=== PATIENT | male | born 1945 | race Two or more races ===

== ENCOUNTER 2016-04-09 23:57 | Inpatient (IN) | payer MEDICARE ==
[2016-04-10 01:21] VITALS: BP 100/73
[2016-04-10] MEDS ORDERED: Promethazine DM 6.25/15mg-5mL 5 ML SYR PO PRN (01:32)
[2016-04-10] MEDS: Sodium Chloride 0.9% 1,000 ML IV SCH ×2 (02:25→23:26)
[2016-04-10] MEDS: INSULIN ASPART SLIDING SCALE 100 UNITS/ML UNIT SUBQ SCH ×4 (06:17→23:26)
[2016-04-10 07:05] LABS: % BASOPHILS 0.4 % (0.0-2.0); % EOSINOPHILS 2.2 % (0.0-5.0); % LYMPHOCYTES 30.8 % (20.0-50.0); % MONOCYTES 8.9 % (2.0-10.0); % NEUTROPHILS 57.7 % (40.0-80.0); HEMATOCRIT 43.1 % (39.0-49.0); HEMOGLOBIN 14.6 gm/dL (12.6-17.4); MEAN CELL VOLUME 88.4 fl (80-99); MEAN CORPUSCULAR HEMOGLOBIN 30.1 pg (27.0-31.0); MEAN PLATELET VOLUME 8.2 fl; NEUTROPHILE ABSOLUTE 4.4 Th/cmm (1.8-8.0); PLATELET COUNT 154 Th/cmm (150-400); RED BLOOD COUNT 4.87 Mil/cmm (3.80-5.80); RED CELL DISTRIBUTION WIDTH 12.7 % (11.5-20.0); WHITE BLOOD COUNT 7.7 Th/cmm (4.8-10.8)
[2016-04-10 07:28] LABS: ALB/GLOB RATIO 1.1 (1.0-1.8); ALKALINE PHOSPHATASE 72 U/L (34-104); ANION GAP 10.4 (7.0-16.0); BILIRUBIN,TOTAL 0.7 mg/dL (0.3-1.0); BUN - UREA NITROGEN 8 mg/dL (7-25); CHLORIDE 107 mEq/L (98-107); CREATININE - SERUM 0.8 mg/dL (0.7-1.3); GLUCOSE 102 mg/dL (70-105); POTASSIUM SERUM 3.4 mEq/L (3.5-5.1); SGOT 15 U/L (13-39); SGPT/ALT 15 U/L (7-52); SODIUM SERUM 140 mEq/L (136-145)
--- NOTE | 2016-04-10 08:21 | General Progress Note ---
Subjective - Review of Systems Service Date: 04/10/16 Subjective: Patient confused Objective - Results Result Diagrams: 04/10/16 06:06 04/10/16 06:06 Recent Labs: Laboratory Last Values WBC 7.7 Th/cmm (4.8-10.8) 04/10/16 06:06 RBC 4.87 Mil/cmm (3.80-5.80) 04/10/16 06:06 Hgb 14.6 gm/dL (12.6-17.4) 04/10/16 06:06 Hct 43.1 % (39.0-49.0) 04/10/16 06:06 MCV 88.4 fl (80-99) 04/10/16 06:06 MCH 30.1 pg (27.0-31.0) 04/10/16 06:06 MCHC Differential 34.0 pg (28.0-36.0) 04/10/16 06:06 RDW 12.7 % (11.5-20.0) 04/10/16 06:06 Plt Count 154 Th/cmm (150-400) 04/10/16 06:06 MPV 8.2 fl 04/10/16 06:06 Neutrophils % 57.7 % (40.0-80.0) 04/10/16 06:06 Lymphocytes % 30.8 % (20.0-50.0) 04/10/16 06:06 Monocytes % 8.9 % (2.0-10.0) 04/10/16 06:06 Eosinophils % 2.2 % (0.0-5.0) 04/10/16 06:06 Basophils % 0.4 % (0.0-2.0) 04/10/16 06:06 Sodium 140 mEq/L (136-145) 04/10/16 06:06 Potassium 3.4 mEq/L (3.5-5.1) L 04/10/16 06:06 Chloride 107 mEq/L (98-107) 04/10/16 06:06 Carbon Dioxide 26.0 mEq/L (21.0-31.0) 04/10/16 06:06 Anion Gap 10.4 (7.0-16.0) 04/10/16 06:06 BUN 8 mg/dL (7-25) 04/10/16 06:06 Creatinine 0.8 mg/dL (0.7-1.3) 04/10/16 06:06 Est GFR ( Amer) TNP 04/10/16 06:06 Est GFR (Non-Af Amer) TNP 04/10/16 06:06 BUN/Creatinine Ratio 10.0 04/10/16 06:06 Glucose 102 mg/dL (70-105) 04/10/16 06:06 POC Glucose 100 MG/DL (70 - 105) 04/10/16 06:12 Calcium 9.0 mg/dL (8.6-10.3) 04/10/16 06:06 Total Bilirubin 0.7 mg/dL (0.3-1.0) 04/10/16 06:06 AST 15 U/L (13-39) 04/10/16 06:06 ALT 15 U/L (7-52) 04/10/16 06:06 Alkaline Phosphatase 72 U/L (34-104) 04/10/16 06:06 Total Protein 6.4 gm/dL (6.0-8.3) 04/10/16 06:06 Albumin 3.4 gm/dL (4.2-5.5) L 04/10/16 06:06 Globulin 3.0 gm/dL 04/10/16 06:06 Albumin/Globulin Ratio 1.1 (1.0-1.8) 04/10/16 06:06 - Physical Exam Vitals and I&O: Vital Signs Temp 99.7 F 04/10/16 04:00 Pulse 86 04/10/16 05:00 Resp 19 04/10/16 04:00 BP 92/52 04/10/16 05:00 Pulse Ox 98 04/10/16 04:00 Intake & Output 04/09/16 04/10/16 04/10/16 18:59 06:59 18:59 Output Total 400 Balance -400 Weight (lbs) 76.7 kg Output: Urine 400 Active Medications: Current Medications Acetaminophen (Tylenol) 650 mg PO Q6H PRN PRN Reason: Pain or Fever >101 Stop: 06/09/16 01:29 Sodium Chloride (Nacl 0.9%) 1,000 mls @ 75 mls/hr IV .[id number] [facility] Stop: 06/09/16 01:59 Last Admin: 04/10/16 02:25 Dose: 75 mls/hr Influenza Virus Vaccine (Fluarix) 0.5 ml IM .ONCE ONE Stop: 04/10/16 09:01 Insulin Aspart (Novolog Insulin Sliding Scale) 0 units SUBQ Q6HR [facility] PRN Reason: Protocol Stop: 06/09/16 05:59 Last Admin: 04/10/16 06:17 Dose: Not Given Ondansetron HCl (Zofran) 4 mg IVP Q6H PRN PRN Reason: Nausea / Vomiting Stop: 06/09/16 01:32 Pneumococcal Polyvalent Vaccine (Pneumovax) 0.5 ml IM .ONCE ONE Stop: 04/10/16 09:01 Promethazine HCl/Dextromethorphan (Phenergan Dm 6.25/15mg-5 Ml) 5 ml PO Q6HR PRN PRN Reason: Cough Stop: 06/09/16 01:31 General: Alert, Other (Confused, not oriented) HEENT: Atraumatic Neck: Supple Cardiovascular: Regular rate Lungs: Other (Rude respiration) Abdomen: Bowel sounds, Soft Extremities: Other (No edema) Skin: Other (Unstable gait) Psych/Mental Status: Other (Confused, not oriented) Assessment/Plan - Assessment Assessment: Patient is confused, not oriented. Dx: Stroke. Patient is little agitated - Plan Plan: [facility] consult request. ativan is added.
[2016-04-10] MEDS ORDERED: Pneumococcal Vaccine 0.5 mL Vial IM ONE (09:00)
[2016-04-10] MEDS ORDERED: Influenza Vaccine 0.5 mL Syr IM ONE (09:00)
--- NOTE | 2016-04-10 11:01 | Diagnostic Imaging Report ---
Portable chest x-ray History: Cough Allowing for portable technique the heart size is normal. No focal pulmonary parenchymal processes. No hilar or mediastinal abnormalities. Impression: No acute abnormalities.
[2016-04-10] MEDS ORDERED: VTE Chemical Prophylaxis Screen/Admission MC PRN (11:30)
--- NOTE | 2016-04-10 12:11 | History & Physical ---
CHIEF COMPLAINT: Confusion and motor weakness. HISTORY OF PRESENT ILLNESS: This is a case of a 70-year-old male who was at home with her daughter and she left for 10 minutes when she came back, the patient was confused with some weakness in the right arm and leg. The patient was transported to [facility] where he was evaluated. During evaluation, head CT was done and was found according to the CT, the patient has abnormal right frontal, occipital possible right temporal lobe cortical lesion suspicious for acute infarct in the right lobe. Diagnosis of CVA was done and the patient was transferred to the hospital to continue with treatment. In [facility], he was evaluated by the Neurology and it was considered the patient was not a candidate for thrombolytic therapy. PAST MEDICAL HISTORY: Unremarkable. PAST SURGICAL HISTORY: Not available. FAMILY HISTORY: Unremarkable. ALLERGIES: No known allergies. MEDICATIONS: Reviewed. REVIEW OF SYSTEMS: Information was not obtained secondary to the patient's mental confusion. PHYSICAL EXAMINATION: GENERAL: Does reveal a fairly nourished and developed male, awake, alert, confused, not oriented, answering question, but confused. HEENT: Head is normocephalic and atraumatic. Eyes: Pupils reactive to light. Nose: No evidence of nasal obstruction. Ears: No evidence of any discharge. Mouth: Fairly ____. Tongue movement adequately. Face muscles, there is no deviation. LUNGS: Bilateral air entry ____ respiration. The patient has cough. HEART: Regular rhythm. ABDOMEN: Soft, nontender, bowel sounds present. EXTREMITIES: The patient has decreased muscle force in the right arm. Right leg normal. ____ of the extremities normal. NEUROLOGICAL: The patient is awake, alert, confused, not oriented. Neurological examination was not completed secondary to the patient's confusion. At this moment, there is only decreased muscle strength in the right arm. IMPRESSION: Stroke. PLAN: 1. The patient will be admitted in the telemetry unit. 2. Normal saline IV. 3. Consult with Dr. Bullock, Neurology. 4. Tylenol p.r.n. 5. Soft diet. 6. Neurological check q. 6 hours 7. Accu-Chek q. 6 hours. 8. CBC and CMP at a.m. and chest x-ray. JOB# [id number]
[2016-04-10] MEDS ORDERED: Sodium Chloride 0.9% 500 ML IV ONE (15:51)
--- NOTE | 2016-04-10 21:39 | History & Physical ---
HISTORY OF PRESENT ILLNESS: The patient ____ difficulty with confusion. Weakness, right side. Went to hospital. The patient's CT scan shows acute stroke in the right frontal occipital, right temporal. The patient treated on non-tPA protocol. The patient transferred here. PAST MEDICAL HISTORY: The patient is generally healthy. No other major medical problems. PAST SURGICAL HISTORY: None recently. ALLERGIES: None. MEDICATIONS: As per reconciliation. Here, the patient is on Xanax. REVIEW OF SYSTEMS: No marked headache and no seizures. Confusion. The patient will answer questions. Weakness, right side. No chest pain. No shortness of breath. No cough, sputum, or hemoptysis. PHYSICAL EXAMINATION: VITAL SIGNS: Temperature 98.4, blood pressure 128/86, and pulse is 90. NECK: Supple. No neck bruits. HEART: Sounds S1 and S2. LUNGS: Clear. ABDOMEN: Soft. NEUROLOGIC: The patient awake. He gives me his name. He is able to name simple objects, though has limited speech. At times inappropriate. CRANIAL: He was able to identify objects in both [place]. Pupils are reactive to light. Some right facial droop MOTOR: He has definite drift on the right arm. Right leg is actually not bad. He is able to lift ____. Reflexes 1+. INVESTIGATIONS: CT scan done at [place] showed abnormal right frontal occipital and possible right temporal lobe infarctions. Here, the patient had a CAT scan done today, which shows hypodense area not only on the right side, but also on the left side, they are still more on the right. LABORATORY DATA: The patient's WBC is 7.7, hemoglobin is 14.6, and platelets are normal. EKG shows sinus rhythm. IMPRESSION: 1. Stroke, right, both anterior and posterior circulation. Also, hypodense area on the left side, raises possibility of embolic. 2. Clinically surprisingly, he has some drift on the right side compared to the left. 3. Ataxia. MANAGEMENT: MRI of brain. MRA of head and neck. I will recommend cardiology evaluation to make sure no cardiogenic etiology for the stroke. Antiplatelet medications. Lipid profile. JOB# [id number]
[2016-04-10] MEDS: Aspirin 81mg Chewable Tab PO SCH (22:13)
[2016-04-11 06:41] LABS: % BASOPHILS 0.5 % (0.0-2.0); % LYMPHOCYTES 35.5 % (20.0-50.0); % MONOCYTES 6.5 % (2.0-10.0); % NEUTROPHILS 54.5 % (40.0-80.0); HEMATOCRIT 43.2 % (39.0-49.0); HEMOGLOBIN 14.5 gm/dL (12.6-17.4); MEAN CELL VOLUME 88.8 fl (80-99); MEAN CORPUSCULAR HEMOGLOBIN 29.9 pg (27.0-31.0); MEAN CORPUSCULAR HGB CONC 33.7 pg (28.0-36.0); MEAN PLATELET VOLUME 8.5 fl; NEUTROPHILE ABSOLUTE 4.7 Th/cmm (1.8-8.0); PLATELET COUNT 156 Th/cmm (150-400); RED BLOOD COUNT 4.86 Mil/cmm (3.80-5.80); RED CELL DISTRIBUTION WIDTH 12.4 % (11.5-20.0); WHITE BLOOD COUNT 8.3 Th/cmm (4.8-10.8)
[2016-04-11 07:06] LABS: ALB/GLOB RATIO 1.1 (1.0-1.8); ALKALINE PHOSPHATASE 64 U/L (34-104); ANION GAP 10.5 (7.0-16.0); BILIRUBIN,TOTAL 0.8 mg/dL (0.3-1.0); BUN - UREA NITROGEN 8 mg/dL (7-25); BUN/CREATININE RATIO 11.4; CALCIUM SERUM 8.9 mg/dL (8.6-10.3); CARBON DIOXIDE 26.7 mEq/L (21.0-31.0); CHLORIDE 105 mEq/L (98-107); CHOLESTEROL 146 mg/dL (<200); CREATININE - SERUM 0.7 mg/dL (0.7-1.3); GLUCOSE 90 mg/dL (70-105); POTASSIUM SERUM 3.2 mEq/L (3.5-5.1); SGOT 17 U/L (13-39); SGPT/ALT 15 U/L (7-52); SODIUM SERUM 139 mEq/L (136-145); TRIGLYCERIDES 111 mg/dL (<150)
[2016-04-11] MEDS: INSULIN ASPART SLIDING SCALE 100 UNITS/ML UNIT SUBQ SCH ×3 (07:43→17:36)
[2016-04-11 07:45] LABS: URINE BILIRUBIN NEGATIVE (NEGATIVE); URINE GLUCOSE (UA) NEGATIVE (NEGATIVE); URINE KETONE NEGATIVE (NEGATIVE)
[2016-04-11 07:46] LABS: URINE BLOOD MODERATE (NEGATIVE); URINE PROTEIN NEGATIVE (NEGATIVE); URINE UROBILINOGEN 0.2 E.U./dL (0.2 - 1.0)
[2016-04-11 08:18] LABS: URINE COLOR PINKISH
[2016-04-11 08:19] LABS: URINE BACTERIA OCCASIONAL /hpf (NONE SEEN); URINE EPITHELIAL CELLS OCCASIONAL /lpf (FEW); URINE RBC 50-100 /hpf (0-5); URINE WBC 0-2 /hpf (0-5)
[2016-04-11] MEDS ORDERED: Potassium Phosphate 20 MMOLE in Sodium Chloride 0.9% 250 ML IV ONE (08:28)
[2016-04-11] MEDS: Aspirin 81mg Chewable Tab PO SCH (08:51)
--- NOTE | 2016-04-11 08:58 | General Progress Note ---
Subjective - Review of Systems Service Date: 03/14/16 Subjective: Patient confused, responding question Objective - Results Result Diagrams: 04/11/16 05:18 04/11/16 05:18 Recent Labs: Laboratory Last Values WBC 8.3 Th/cmm (4.8-10.8) 04/11/16 05:18 RBC 4.86 Mil/cmm (3.80-5.80) 04/11/16 05:18 Hgb 14.5 gm/dL (12.6-17.4) 04/11/16 05:18 Hct 43.2 % (39.0-49.0) 04/11/16 05:18 MCV 88.8 fl (80-99) 04/11/16 05:18 MCH 29.9 pg (27.0-31.0) 04/11/16 05:18 MCHC Differential 33.7 pg (28.0-36.0) 04/11/16 05:18 RDW 12.4 % (11.5-20.0) 04/11/16 05:18 Plt Count 156 Th/cmm (150-400) 04/11/16 05:18 MPV 8.5 fl 04/11/16 05:18 Neutrophils % 54.5 % (40.0-80.0) 04/11/16 05:18 Lymphocytes % 35.5 % (20.0-50.0) 04/11/16 05:18 Monocytes % 6.5 % (2.0-10.0) 04/11/16 05:18 Eosinophils % 3.0 % (0.0-5.0) 04/11/16 05:18 Basophils % 0.5 % (0.0-2.0) 04/11/16 05:18 Sodium 139 mEq/L (136-145) 04/11/16 05:18 Potassium 3.2 mEq/L (3.5-5.1) L 04/11/16 05:18 Chloride 105 mEq/L (98-107) 04/11/16 05:18 Carbon Dioxide 26.7 mEq/L (21.0-31.0) 04/11/16 05:18 Anion Gap 10.5 (7.0-16.0) 04/11/16 05:18 BUN 8 mg/dL (7-25) 04/11/16 05:18 Creatinine 0.7 mg/dL (0.7-1.3) 04/11/16 05:18 Est GFR ( Amer) TNP 04/11/16 05:18 Est GFR (Non-Af Amer) TNP 04/11/16 05:18 BUN/Creatinine Ratio 11.4 04/11/16 05:18 Glucose 90 mg/dL (70-105) 04/11/16 05:18 POC Glucose 82 MG/DL (70 - 105) 04/11/16 06:03 Calcium 8.9 mg/dL (8.6-10.3) 04/11/16 05:18 Total Bilirubin 0.8 mg/dL (0.3-1.0) 04/11/16 05:18 AST 17 U/L (13-39) 04/11/16 05:18 ALT 15 U/L (7-52) 04/11/16 05:18 Alkaline Phosphatase 64 U/L (34-104) 04/11/16 05:18 Total Protein 6.3 gm/dL (6.0-8.3) 04/11/16 05:18 Albumin 3.3 gm/dL (4.2-5.5) L 04/11/16 05:18 Globulin 3.0 gm/dL 04/11/16 05:18 Albumin/Globulin Ratio 1.1 (1.0-1.8) 04/11/16 05:18 Triglycerides 111 mg/dL (<150) 04/11/16 05:18 Cholesterol 146 mg/dL (<200) 04/11/16 05:18 LDL Cholesterol Direct 93 mg/dL (75-193) 04/11/16 05:18 HDL Cholesterol 36 mg/dL (23-92) 04/11/16 05:18 TSH 4.98 uIU/ml (0.34-5.60) 04/11/16 05:18 Urine Source [place] 04/11/16 06:05 Urine Color PINKISH 04/11/16 06:05 Urine Clarity CLEAR (CLEAR) 04/11/16 06:05 Urine pH 7.0 04/11/16 06:05 Ur Specific [place] 1.015 (1.005-1.030) 04/11/16 06:05 Urine Protein NEGATIVE mg/dL (NEGATIVE) 04/11/16 06:05 Urine Glucose (UA) NEGATIVE mg/dL (NEGATIVE) 04/11/16 06:05 Urine Ketones NEGATIVE mg/dL (NEGATIVE) 04/11/16 06:05 Urine Blood MODERATE (NEGATIVE) H 04/11/16 06:05 Urine Nitrate NEGATIVE (NEGATIVE) 04/11/16 06:05 Urine Bilirubin NEGATIVE (NEGATIVE) 04/11/16 06:05 Urine Urobilinogen 0.2 E.U./dL (0.2 - 1.0) 04/11/16 06:05 Ur Leukocyte Esterase NEGATIVE (NEGATIVE) 04/11/16 06:05 Urine RBC 50-100 /hpf (0-5) H 04/11/16 06:05 Urine WBC 0-2 /hpf (0-5) 04/11/16 06:05 Ur Epithelial Cells OCCASIONAL /lpf (FEW) 04/11/16 06:05 Urine Bacteria OCCASIONAL /hpf (NONE SEEN) 04/11/16 06:05 - Physical Exam Vitals and I&O: Vital Signs Temp 98.7 F 04/11/16 04:00 Pulse 69 04/11/16 04:00 Resp 20 04/11/16 04:00 BP 110/54 04/11/16 04:30 Pulse Ox 100 04/11/16 04:00 Intake & Output 04/10/16 04/11/16 04/11/16 18:59 06:59 18:59 Intake Total 1900 650 Output Total 800 2000 Balance 1100 -1350 Intake: Intake, IV Amount 1500 Sodium Chloride 0.9% 1, 1000 000 ml @ 75 mls/hr IV . [id number] [facility] Rx#:[id number] Oral 400 650 Output: Urine 800 2000 Other: # Bowel Movements 0 Active Medications: Current Medications Acetaminophen (Tylenol) 650 mg PO Q6H PRN PRN Reason: Pain or Fever >101 Stop: 06/09/16 01:29 Alprazolam (Xanax) 0.5 mg PO Q12HR PRN; Protocol PRN Reason: Agitation Stop: 06/09/16 08:59 Last Admin: 04/10/16 22:12 Dose: 0.5 mg Aspirin (Aspirin Chewable) 81 mg PO DAILY [facility] Stop: 06/09/16 21:59 Last Admin: 04/11/16 08:51 Dose: 81 mg Heparin Sodium (Porcine) (Heparin) 5,000 units SUBQ Q12HR [facility]ICK Stop: 06/09/16 20:59 Last Admin: 04/11/16 08:51 Dose: 5,000 units Sodium Chloride (Nacl 0.9%) 1,000 mls @ 75 mls/hr IV .[id number] [facility] Stop: 06/09/16 01:59 Last Admin: 04/10/16 23:26 Dose: 75 mls/hr Potassium Phosphate 20 mmole/ (Sodium Chloride) 256.6667 mls @ 42.5 mls/hr IV X1 ONE Stop: 04/11/16 14:30 Insulin Aspart (Novolog Insulin Sliding Scale) 0 units SUBQ Q6HR MICK PRN Reason: Protocol Stop: 06/09/16 05:59 Last Admin: 04/11/16 07:43 Dose: Not Given Lorazepam (Ativan) 1 mg IVP ONCE MICK PRN Reason: Protocol Stop: 06/10/16 08:29 Miscellaneous (Vte Chemical Prophylaxis Screen/ Admission) 1 ea [facility] PRN PRN PRN Reason: PROTOCOL Stop: 06/09/16 11:29 Ondansetron HCl (Zofran) 4 mg IVP Q6H PRN PRN Reason: Nausea / Vomiting Stop: 06/09/16 01:32 Promethazine HCl/Dextromethorphan (Phenergan Dm 6.25/15mg-5 Ml) 5 ml PO Q6HR PRN PRN Reason: Cough Stop: 06/09/16 01:31 Last Admin: 04/10/16 22:20 Dose: 5 ml General: Alert, No acute distress, Other (Confused) HEENT: Atraumatic Neck: Supple Cardiovascular: Regular rate Lungs: Clear to auscultation Abdomen: Bowel sounds Extremities: Other (No edema, diminished muscle strenght in right arm (20 %)) Neurological: Other (Unstable gait) Skin: Other (Warm and dry) Psych/Mental Status: Other (Confused) Assessment/Plan - Assessment Assessment: Patient is confused, not oriented. Dx: Stroke. Patient is more calm today. - Plan Plan: patient already seen by [facility]. MRI will be done today. Will continue to monitor
[2016-04-11] MEDS ORDERED: KCL 20mEq/100mL Premix 20 MEQ/100 ML PIGGYBACK IV ONE (09:15)
--- NOTE | 2016-04-11 11:35 | Diagnostic Imaging Report ---
CT scan of the brain without intravenous contrast HISTORY: Stroke, CVA Total DLP equals 681 CTDI equals 35.4 Axial sections were obtained from the base of the skull to the vertex. There is a normal ventricular system size for age. There is enlargement of cerebral sulci and subarachnoid cisterns reflecting atrophy. Hypodensity is noted in the right lesser degree left occipital regions. No significant mass effect. Findings may be associated with a chronic etiology (old infarcts). However, an acute ischemic infarct cannot be definitely excluded. If indicated, an MRI exam would provide additional characterization. Focal hypodensity is noted in the high right frontal parietal region probably related to an old infarct. No acute intracerebral hemorrhage. Again, no mass effect or shift of midline structures. No extra-axial masses or abnormal fluid collections. Atherosclerotic calcification seen in the region of the vertebral arteries at the base of the skull. IMPRESSION: 1. Hypodensity within the right and to a lesser degree left occipital regions without mass effect. The findings may be associated with old infarcts. However, changes related to an acute ischemic infarct cannot be definitely excluded. Clinical correlation is needed. If necessary, an MRI exam may be helpful. 2. Focal hypodensity in the high right frontal parietal region most likely related to an old infarct. 3. Cerebral atrophy 4. Atherosclerotic vascular changes
[2016-04-11] MEDS: Sodium Chloride 0.9% 1,000 ML IV SCH (14:42)
--- NOTE | 2016-04-11 21:21 | Admit Criteria Form ---
Admit Criteria Forms - Admit Criteria Diagnosis: STROKE: ISCHEMIC Clinical Indications for Admission to Inpatient Care (Place 'X' for any and all applicable criteria): Admission is indicated for ANY ONE of the following(1)(2)(3)(4): [X]I. Acute stroke Extended stay beyond goal length of stay may be needed for(1)(2) [ ]a) Major deficit or clinical deterioration [ ]b) Hospital-acquired infection (eg, urinary tract infection, pneumonia) [ ]c) Embolic cause of stroke [ ]d) Venous thromboembolism(9) [ ]e) Seizures [ ]f) Bleeding (eg, cerebral) [ ]g) Increased intracranial pressure [ ]h) Comorbidities [ ]i) Surgical intervention The original [employer] [facility] content created by [facility] [employer] has been revised. The portions of the content which have been revised are identified through the use of italic text or in bold, and [facility] has neither reviewed nor approved the modified material. All other unmodified content is copyright [facility] [employer]. Please see references footnoted in the original [facility] edition 2016 Admit Criteria Met?: Yes
[2016-04-11] MEDS: Levofloxacin 500mg/100mL 500 MG/100 ML BAG IV SCH (23:52)
[2016-04-12] MEDS: INSULIN ASPART SLIDING SCALE 100 UNITS/ML UNIT SUBQ SCH ×4 (00:03→18:00)
[2016-04-12] MEDS: Sodium Chloride 0.9% 1,000 ML IV SCH ×2 (05:07→17:37)
[2016-04-12 05:37] LABS: % BASOPHILS 0.3 % (0.0-2.0); % EOSINOPHILS 4.7 % (0.0-5.0); % LYMPHOCYTES 36.9 % (20.0-50.0); % MONOCYTES 7.5 % (2.0-10.0); % NEUTROPHILS 50.6 % (40.0-80.0); HEMOGLOBIN 15.3 gm/dL (12.6-17.4); MEAN CELL VOLUME 88.9 fl (80-99); MEAN CORPUSCULAR HEMOGLOBIN 30.2 pg (27.0-31.0); MEAN CORPUSCULAR HGB CONC 33.9 pg (28.0-36.0); MEAN PLATELET VOLUME 7.9 fl; NEUTROPHILE ABSOLUTE 3.4 Th/cmm (1.8-8.0); PLATELET COUNT 160 Th/cmm (150-400); RED BLOOD COUNT 5.06 Mil/cmm (3.80-5.80); RED CELL DISTRIBUTION WIDTH 12.2 % (11.5-20.0)
[2016-04-12 05:48] LABS: WHITE BLOOD COUNT 6.6 Th/cmm (4.8-10.8)
[2016-04-12 07:30] LABS: ALKALINE PHOSPHATASE 66 U/L (34-104); ANION GAP 13.3 (7.0-16.0); BILIRUBIN,TOTAL 0.7 mg/dL (0.3-1.0); BUN - UREA NITROGEN 9 mg/dL (7-25); BUN/CREATININE RATIO 11.3; CALCIUM SERUM 9.2 mg/dL (8.6-10.3); CARBON DIOXIDE 26.3 mEq/L (21.0-31.0); CHLORIDE 104 mEq/L (98-107); CREATININE - SERUM 0.8 mg/dL (0.7-1.3); GLUCOSE 89 mg/dL (70-105); POTASSIUM SERUM 3.6 mEq/L (3.5-5.1); SGOT 24 U/L (13-39); SGPT/ALT 20 U/L (7-52); SODIUM SERUM 140 mEq/L (136-145)
--- NOTE | 2016-04-12 09:12 | General Progress Note ---
Subjective - Review of Systems Service Date: 04/12/16 Subjective: Patient confused, responding question Objective - Results Result Diagrams: 04/12/16 05:08 04/12/16 05:08 Recent Labs: Laboratory Last Values WBC 6.6 Th/cmm (4.8-10.8) D 04/12/16 05:08 RBC 5.06 Mil/cmm (3.80-5.80) 04/12/16 05:08 Hgb 15.3 gm/dL (12.6-17.4) 04/12/16 05:08 Hct 45.0 % (39.0-49.0) 04/12/16 05:08 MCV 88.9 fl (80-99) 04/12/16 05:08 MCH 30.2 pg (27.0-31.0) 04/12/16 05:08 MCHC Differential 33.9 pg (28.0-36.0) 04/12/16 05:08 RDW 12.2 % (11.5-20.0) 04/12/16 05:08 Plt Count 160 Th/cmm (150-400) 04/12/16 05:08 MPV 7.9 fl 04/12/16 05:08 Neutrophils % 50.6 % (40.0-80.0) 04/12/16 05:08 Lymphocytes % 36.9 % (20.0-50.0) 04/12/16 05:08 Monocytes % 7.5 % (2.0-10.0) 04/12/16 05:08 Eosinophils % 4.7 % (0.0-5.0) 04/12/16 05:08 Basophils % 0.3 % (0.0-2.0) 04/12/16 05:08 Sodium 140 mEq/L (136-145) 04/12/16 05:08 Potassium 3.6 mEq/L (3.5-5.1) 04/12/16 05:08 Chloride 104 mEq/L (98-107) 04/12/16 05:08 Carbon Dioxide 26.3 mEq/L (21.0-31.0) 04/12/16 05:08 Anion Gap 13.3 (7.0-16.0) 04/12/16 05:08 BUN 9 mg/dL (7-25) 04/12/16 05:08 Creatinine 0.8 mg/dL (0.7-1.3) 04/12/16 05:08 Est GFR ( Amer) TNP 04/12/16 05:08 Est GFR (Non-Af Amer) TNP 04/12/16 05:08 BUN/Creatinine Ratio 11.3 04/12/16 05:08 Glucose 89 mg/dL (70-105) 04/12/16 05:08 POC Glucose 95 MG/DL (70 - 105) 04/12/16 05:12 Calcium 9.2 mg/dL (8.6-10.3) 04/12/16 05:08 Total Bilirubin 0.7 mg/dL (0.3-1.0) 04/12/16 05:08 AST 24 U/L (13-39) 04/12/16 05:08 ALT 20 U/L (7-52) 04/12/16 05:08 Alkaline Phosphatase 66 U/L (34-104) 04/12/16 05:08 Total Protein 6.7 gm/dL (6.0-8.3) 04/12/16 05:08 Albumin 3.4 gm/dL (4.2-5.5) L 04/12/16 05:08 Globulin 3.3 gm/dL 04/12/16 05:08 Albumin/Globulin Ratio 1.0 (1.0-1.8) 04/12/16 05:08 Triglycerides 111 mg/dL (<150) 04/11/16 05:18 Cholesterol 146 mg/dL (<200) 04/11/16 05:18 LDL Cholesterol Direct 93 mg/dL (75-193) 04/11/16 05:18 HDL Cholesterol 36 mg/dL (23-92) 04/11/16 05:18 TSH 4.98 uIU/ml (0.34-5.60) 04/11/16 05:18 Urine Source [place] 04/11/16 06:05 Urine Color [place]INK[place] 04/11/16 06:05 Urine Clarity CLEAR (CLEAR) 04/11/16 06:05 Urine pH 7.0 04/11/16 06:05 Ur Specific [place] 1.015 (1.005-1.030) 04/11/16 06:05 Urine Protein NEGATIVE mg/dL (NEGATIVE) 04/11/16 06:05 Urine Glucose (UA) NEGATIVE mg/dL (NEGATIVE) 04/11/16 06:05 Urine Ketones NEGATIVE mg/dL (NEGATIVE) 04/11/16 06:05 Urine Blood MODERATE (NEGATIVE) H 04/11/16 06:05 Urine Nitrate NEGATIVE (NEGATIVE) 04/11/16 06:05 Urine Bilirubin NEGATIVE (NEGATIVE) 04/11/16 06:05 Urine Urobilinogen 0.2 E.U./dL (0.2 - 1.0) 04/11/16 06:05 Ur Leukocyte Esterase NEGATIVE (NEGATIVE) 04/11/16 06:05 Urine RBC 50-100 /hpf (0-5) H 04/11/16 06:05 Urine WBC 0-2 /hpf (0-5) 04/11/16 06:05 Ur Epithelial Cells OCCASIONAL /lpf (FEW) 04/11/16 06:05 Urine Bacteria OCCASIONAL /hpf (NONE SEEN) 04/11/16 06:05 - Physical Exam Vitals and I&O: Vital Signs Temp 99 F 04/12/16 04:00 Pulse 80 04/12/16 04:00 Resp 18 04/12/16 04:00 BP 86/46 04/12/16 04:00 Pulse Ox 99 04/12/16 04:00 Intake & Output 04/11/16 04/12/16 04/12/16 18:59 06:59 18:59 Intake Total 1400 1240 Output Total 600 750 Balance 800 490 Intake: Intake, IV Amount 1000 1000 Sodium Chloride 0.9% 1, 1000 1000 000 ml @ 75 mls/hr IV . [id number] [facility] Rx#:[id number] Oral 400 240 Output: Urine 600 750 Other: # Bowel Movements 0 Active Medications: Current Medications Acetaminophen (Tylenol) 650 mg PO Q6H PRN PRN Reason: Pain or Fever >101 Stop: 06/09/16 01:29 Last Admin: 04/11/16 23:25 Dose: 650 mg Alprazolam (Xanax) 0.5 mg PO Q12HR PRN; Protocol PRN Reason: Agitation Stop: 06/09/16 08:59 Last Admin: 04/10/16 22:12 Dose: 0.5 mg Aspirin (Aspirin Chewable) 81 mg PO DAILY [facility] Stop: 06/09/16 21:59 Last Admin: 04/11/16 08:51 Dose: 81 mg Heparin Sodium (Porcine) (Heparin) 5,000 units SUBQ Q12HR [facility] Stop: 06/09/16 20:59 Last Admin: 04/11/16 20:41 Dose: 5,000 units Levofloxacin (Levaquin Pb) 500 mg in 100 mls @ 100 mls/hr IV Q24HR [facility] Stop: 06/11/16 00:00 Last Admin: 04/11/16 23:52 Dose: 100 mls/hr Sodium Chloride (Nacl 0.9%) 1,000 mls @ 100 mls/hr IV .Q10H [facility] Stop: 06/09/16 01:59 Insulin Aspart (Novolog Insulin Sliding Scale) 0 units SUBQ Q6HR [facility] PRN Reason: Protocol Stop: 06/09/16 05:59 Last Admin: 04/12/16 05:55 Dose: Not Given Miscellaneous (Vte Chemical Prophylaxis Screen/ Admission) 1 ea [facility] PRN PRN PRN Reason: PROTOCOL Stop: 06/09/16 11:29 Ondansetron HCl (Zofran) 4 mg IVP Q6H PRN PRN Reason: Nausea / Vomiting Stop: 06/09/16 01:32 Promethazine HCl/Dextromethorphan (Phenergan Dm 6.25/15mg-5 Ml) 5 ml PO Q6HR PRN PRN Reason: Cough Stop: 06/09/16 01:31 Last Admin: 04/10/16 22:20 Dose: 5 ml General: Alert, No acute distress (C), Other (Confused, not oriented) HEENT: Atraumatic Neck: Supple Cardiovascular: Regular rate Lungs: Clear to auscultation Abdomen: Bowel sounds, Soft Extremities: Other (No edema) Neurological: Other (Unstable gait) Skin: Other (Warm and dry) Psych/Mental Status: Other (Confused) Assessment/Plan - Assessment Assessment: Patient is confused, not oriented, responding question, in no acute distress. Yesterday a tried to do an MRI was done but could not done because patient was not calm and Ativan could not given due to Low BP. Dx: Stroke. Patient is more calm today. - Plan Plan: patient already seen by [facility]. Na in urine and blood is requested, cortisol and TSH are requested. Due to UTI levaquin is added. Will continue to monitor
[2016-04-12] MEDS: Aspirin 81mg Chewable Tab PO SCH (09:22)
[2016-04-12] MEDS: Levofloxacin 500mg/100mL 500 MG/100 ML BAG IV SCH (23:11)
[2016-04-13] MEDS: INSULIN ASPART SLIDING SCALE 100 UNITS/ML UNIT SUBQ SCH ×4 (00:05→17:52)
[2016-04-13] MEDS: Sodium Chloride 0.9% 1,000 ML IV SCH ×3 (04:00→18:19)
[2016-04-13 06:18] LABS: ALB/GLOB RATIO 1.1 (1.0-1.8); ALKALINE PHOSPHATASE 60 U/L (34-104); ANION GAP 8.7 (7.0-16.0); BILIRUBIN,TOTAL 0.6 mg/dL (0.3-1.0); BUN - UREA NITROGEN 9 mg/dL (7-25); BUN/CREATININE RATIO 12.9; CALCIUM SERUM 9.1 mg/dL (8.6-10.3); CARBON DIOXIDE 27.9 mEq/L (21.0-31.0); CHLORIDE 106 mEq/L (98-107); CREATININE - SERUM 0.7 mg/dL (0.7-1.3); GLUCOSE 89 mg/dL (70-105); POTASSIUM SERUM 3.6 mEq/L (3.5-5.1); SGOT 22 U/L (13-39); SGPT/ALT 20 U/L (7-52); SODIUM SERUM 139 mEq/L (136-145)
[2016-04-13 06:47] LABS: HEMOGLOBIN 14.8 gm/dL (12.6-17.4); MEAN CORPUSCULAR HEMOGLOBIN 30.3 pg (27.0-31.0); MEAN CORPUSCULAR HGB CONC 33.6 pg (28.0-36.0); MEAN PLATELET VOLUME 8.6 fl; PLATELET COUNT 184 Th/cmm (150-400); RED BLOOD COUNT 4.89 Mil/cmm (3.80-5.80); RED CELL DISTRIBUTION WIDTH 12.3 % (11.5-20.0); WHITE BLOOD COUNT 6.1 Th/cmm (4.8-10.8)
[2016-04-13 06:48] LABS: % BASOPHILS 0.9 % (0.0-2.0); % MONOCYTES 8.4 % (2.0-10.0); % NEUTROPHILS 42.7 % (40.0-80.0); NEUTROPHILE ABSOLUTE 2.6 Th/cmm (1.8-8.0)
[2016-04-13] MEDS: Aspirin 81mg Chewable Tab PO SCH (08:19)
--- NOTE | 2016-04-13 08:35 | General Progress Note ---
Subjective - Review of Systems Service Date: 04/13/16 Subjective: Patient confused, responding question Objective - Results Result Diagrams: 04/13/16 05:26 04/13/16 05:26 Recent Labs: Laboratory Last Values WBC 6.1 Th/cmm (4.8-10.8) 04/13/16 05:26 RBC 4.89 Mil/cmm (3.80-5.80) 04/13/16 05:26 Hgb 14.8 gm/dL (12.6-17.4) 04/13/16 05:26 Hct 44.0 % (39.0-49.0) 04/13/16 05:26 MCV 90.0 fl (80-99) 04/13/16 05:26 MCH 30.3 pg (27.0-31.0) 04/13/16 05:26 MCHC Differential 33.6 pg (28.0-36.0) 04/13/16 05:26 RDW 12.3 % (11.5-20.0) 04/13/16 05:26 Plt Count 184 Th/cmm (150-400) 04/13/16 05:26 MPV 8.6 fl 04/13/16 05:26 Neutrophils % 42.7 % (40.0-80.0) 04/13/16 05:26 Lymphocytes % 41.0 % (20.0-50.0) 04/13/16 05:26 Monocytes % 8.4 % (2.0-10.0) 04/13/16 05:26 Eosinophils % 7.0 % (0.0-5.0) H 04/13/16 05:26 Basophils % 0.9 % (0.0-2.0) 04/13/16 05:26 Sodium 139 mEq/L (136-145) 04/13/16 05:26 Potassium 3.6 mEq/L (3.5-5.1) 04/13/16 05:26 Chloride 106 mEq/L (98-107) 04/13/16 05:26 Carbon Dioxide 27.9 mEq/L (21.0-31.0) 04/13/16 05:26 Anion Gap 8.7 (7.0-16.0) 04/13/16 05:26 BUN 9 mg/dL (7-25) 04/13/16 05:26 Creatinine 0.7 mg/dL (0.7-1.3) 04/13/16 05:26 Est GFR ( Amer) TNP 04/13/16 05:26 Est GFR (Non-Af Amer) TNP 04/13/16 05:26 BUN/Creatinine Ratio 12.9 04/13/16 05:26 Glucose 89 mg/dL (70-105) 04/13/16 05:26 POC Glucose 92 MG/DL (70 - 105) 04/13/16 05:28 Calcium 9.1 mg/dL (8.6-10.3) 04/13/16 05:26 Total Bilirubin 0.6 mg/dL (0.3-1.0) 04/13/16 05:26 AST 22 U/L (13-39) 04/13/16 05:26 ALT 20 U/L (7-52) 04/13/16 05:26 Alkaline Phosphatase 60 U/L (34-104) 04/13/16 05:26 Total Protein 6.6 gm/dL (6.0-8.3) 04/13/16 05:26 Albumin 3.4 gm/dL (4.2-5.5) L 04/13/16 05:26 Globulin 3.2 gm/dL 04/13/16 05:26 Albumin/Globulin Ratio 1.1 (1.0-1.8) 04/13/16 05:26 Triglycerides 111 mg/dL (<150) 04/11/16 05:18 Cholesterol 146 mg/dL (<200) 04/11/16 05:18 LDL Cholesterol Direct 93 mg/dL (75-193) 04/11/16 05:18 HDL Cholesterol 36 mg/dL (23-92) 04/11/16 05:18 TSH 5.54 uIU/ml (0.34-5.60) 04/13/16 05:26 Urine Source [place] 04/11/16 06:05 Urine Color PINKISH 04/11/16 06:05 Urine Clarity CLEAR (CLEAR) 04/11/16 06:05 Urine pH 7.0 04/11/16 06:05 Ur Specific [place] 1.015 (1.005-1.030) 04/11/16 06:05 Urine Protein NEGATIVE mg/dL (NEGATIVE) 04/11/16 06:05 Urine Glucose (UA) NEGATIVE mg/dL (NEGATIVE) 04/11/16 06:05 Urine Ketones NEGATIVE mg/dL (NEGATIVE) 04/11/16 06:05 Urine Blood MODERATE (NEGATIVE) H 04/11/16 06:05 Urine Nitrate NEGATIVE (NEGATIVE) 04/11/16 06:05 Urine Bilirubin NEGATIVE (NEGATIVE) 04/11/16 06:05 Urine Urobilinogen 0.2 E.U./dL (0.2 - 1.0) 04/11/16 06:05 Ur Leukocyte Esterase NEGATIVE (NEGATIVE) 04/11/16 06:05 Urine RBC 50-100 /hpf (0-5) H 04/11/16 06:05 Urine WBC 0-2 /hpf (0-5) 04/11/16 06:05 Ur Epithelial Cells OCCASIONAL /lpf (FEW) 04/11/16 06:05 Urine Bacteria OCCASIONAL /hpf (NONE SEEN) 04/11/16 06:05 Ur Random Sodium 89 mmol/L 04/12/16 15:30 - Physical Exam Vitals and I&O: Vital Signs Temp 97.6 F 04/13/16 04:00 Pulse 73 04/13/16 04:00 Resp 20 04/13/16 04:00 BP 90/60 04/13/16 04:00 Pulse Ox 96 04/13/16 04:00 Intake & Output 04/12/16 04/13/16 04/13/16 18:59 06:59 18:59 Intake Total 1600 1400 Output Total 900 1400 Balance 700 0 Intake: Intake, IV Amount 1100 Levofloxacin 500mg/100mL 100 500 mg In 100 ml @ 100 mls/hr IV Q24HR [facility] Rx#: [id number] Sodium Chloride 0.9% 1, 1000 000 ml @ 100 mls/hr IV . Q10H [facility] Rx#:[id number] Oral 1600 300 Output: Urine 900 1400 Active Medications: Current Medications Acetaminophen (Tylenol) 650 mg PO Q6H PRN PRN Reason: Pain or Fever >101 Stop: 06/09/16 01:29 Last Admin: 04/13/16 01:56 Dose: 650 mg Alprazolam (Xanax) 0.5 mg PO Q12HR PRN; Protocol PRN Reason: Agitation Stop: 06/09/16 08:59 Last Admin: 04/10/16 22:12 Dose: 0.5 mg Aspirin (Aspirin Chewable) 81 mg PO DAILY [facility] Stop: 06/09/16 21:59 Last Admin: 04/13/16 08:19 Dose: 81 mg Heparin Sodium (Porcine) (Heparin) 5,000 units SUBQ Q12HR [facility] Stop: 06/09/16 20:59 Last Admin: 04/13/16 08:19 Dose: 5,000 units Levofloxacin (Levaquin Pb) 500 mg in 100 mls @ 100 mls/hr IV Q24HR [facility] Stop: 06/11/16 00:00 Last Infusion: 04/13/16 00:11 Dose: Infused Sodium Chloride (Nacl 0.9%) 1,000 mls @ 125 mls/hr IV .Q8H [facility] Stop: 06/09/16 01:59 Insulin Aspart (Novolog Insulin Sliding Scale) 0 units SUBQ Q6HR [facility] PRN Reason: Protocol Stop: 06/09/16 05:59 Last Admin: 04/13/16 05:39 Dose: Not Given Miscellaneous (Vte Chemical Prophylaxis Screen/ Admission) 1 ea [facility] PRN PRN PRN Reason: PROTOCOL Stop: 06/09/16 11:29 Ondansetron HCl (Zofran) 4 mg IVP Q6H PRN PRN Reason: Nausea / Vomiting Stop: 06/09/16 01:32 Promethazine HCl/Dextromethorphan (Phenergan Dm 6.25/15mg-5 Ml) 5 ml PO Q6HR PRN PRN Reason: Cough Stop: 06/09/16 01:31 Last Admin: 04/10/16 22:20 Dose: 5 ml General: Alert, No acute distress, Other (Confused) HEENT: Atraumatic Neck: Supple Cardiovascular: Regular rate Lungs: Clear to auscultation Abdomen: Bowel sounds, Soft Extremities: Other (No edema) Neurological: Other (Unstable gait) Skin: Other (Warm and dry) Psych/Mental Status: Other (Confused) Assessment/Plan - Assessment Assessment: Patient is confused, not oriented, responding question, in no acute distress. Patient continue with Low BP. Dx: Stroke. Patient is more calm today. - Plan Plan: Awaiting cortisol, PT is order. Will continue to monitor
--- NOTE | 2016-04-13 09:49 | Diagnostic Imaging Report ---
Portable chest x-ray History: Shortness of breath Allowing for portable technique the heart size is normal. No focal pulmonary parenchymal processes. No hilar or mediastinal abnormalities. Impression: No acute abnormalities.
[2016-04-13] MEDS ORDERED: IOHEXOL 350 MG/ML IVP ONE (12:41)
[2016-04-13] MEDS ORDERED: IOHEXOL 350mg/mL 100mL Bottle IVP ONE (12:41)
[2016-04-13] MEDS: Levofloxacin 500mg/100mL 500 MG/100 ML BAG IV SCH (23:06)
[2016-04-14] MEDS: INSULIN ASPART SLIDING SCALE 100 UNITS/ML UNIT SUBQ SCH ×4 (00:12→18:00)
[2016-04-14] MEDS: Sodium Chloride 0.9% 1,000 ML IV SCH ×3 (03:57→17:35)
[2016-04-14 05:51] LABS: HEMATOCRIT 42.2 % (39.0-49.0); HEMOGLOBIN 14.3 gm/dL (12.6-17.4); MEAN CORPUSCULAR HEMOGLOBIN 30.4 pg (27.0-31.0); MEAN CORPUSCULAR HGB CONC 33.8 pg (28.0-36.0); MEAN PLATELET VOLUME 8.8 fl; PLATELET COUNT 173 Th/cmm (150-400); RED BLOOD COUNT 4.69 Mil/cmm (3.80-5.80); RED CELL DISTRIBUTION WIDTH 12.5 % (11.5-20.0); WHITE BLOOD COUNT 5.6 Th/cmm (4.8-10.8)
[2016-04-14 06:35] LABS: ALKALINE PHOSPHATASE 55 U/L (34-104); ANION GAP 9.4 (7.0-16.0); BILIRUBIN,TOTAL 0.5 mg/dL (0.3-1.0); BUN - UREA NITROGEN 8 mg/dL (7-25); BUN/CREATININE RATIO 11.4; CALCIUM SERUM 8.8 mg/dL (8.6-10.3); CARBON DIOXIDE 27.3 mEq/L (21.0-31.0); CHLORIDE 107 mEq/L (98-107); CREATININE - SERUM 0.7 mg/dL (0.7-1.3); GLUCOSE 91 mg/dL (70-105); POTASSIUM SERUM 3.7 mEq/L (3.5-5.1); SGOT 22 U/L (13-39); SGPT/ALT 19 U/L (7-52); SODIUM SERUM 140 mEq/L (136-145)
[2016-04-14] MEDS: Aspirin 81mg Chewable Tab PO SCH (08:01)
--- NOTE | 2016-04-14 08:18 | General Progress Note ---
Subjective - Review of Systems Service Date: 04/14/16 Subjective: Patient confused, responding question Objective - Results Result Diagrams: 04/14/16 05:10 04/14/16 05:10 Recent Labs: Laboratory Last Values WBC 5.6 Th/cmm (4.8-10.8) 04/14/16 05:10 RBC 4.69 Mil/cmm (3.80-5.80) 04/14/16 05:10 Hgb 14.3 gm/dL (12.6-17.4) 04/14/16 05:10 Hct 42.2 % (39.0-49.0) 04/14/16 05:10 MCV 90.0 fl (80-99) 04/14/16 05:10 MCH 30.4 pg (27.0-31.0) 04/14/16 05:10 MCHC Differential 33.8 pg (28.0-36.0) 04/14/16 05:10 RDW 12.5 % (11.5-20.0) 04/14/16 05:10 Plt Count 173 Th/cmm (150-400) 04/14/16 05:10 MPV 8.8 fl 04/14/16 05:10 Neutrophils % 42.7 % (40.0-80.0) 04/13/16 05:26 Lymphocytes % 41.0 % (20.0-50.0) 04/13/16 05:26 Monocytes % 8.4 % (2.0-10.0) 04/13/16 05:26 Eosinophils % 7.0 % (0.0-5.0) H 04/13/16 05:26 Basophils % 0.9 % (0.0-2.0) 04/13/16 05:26 Sodium 140 mEq/L (136-145) 04/14/16 05:10 Potassium 3.7 mEq/L (3.5-5.1) 04/14/16 05:10 Chloride 107 mEq/L (98-107) 04/14/16 05:10 Carbon Dioxide 27.3 mEq/L (21.0-31.0) 04/14/16 05:10 Anion Gap 9.4 (7.0-16.0) 04/14/16 05:10 BUN 8 mg/dL (7-25) 04/14/16 05:10 Creatinine 0.7 mg/dL (0.7-1.3) 04/14/16 05:10 Est GFR ( Amer) TNP 04/14/16 05:10 Est GFR (Non-Af Amer) TNP 04/14/16 05:10 BUN/Creatinine Ratio 11.4 04/14/16 05:10 Glucose 91 mg/dL (70-105) 04/14/16 05:10 POC Glucose 90 MG/DL (70 - 105) 04/14/16 05:43 Calcium 8.8 mg/dL (8.6-10.3) 04/14/16 05:10 Total Bilirubin 0.5 mg/dL (0.3-1.0) 04/14/16 05:10 AST 22 U/L (13-39) 04/14/16 05:10 ALT 19 U/L (7-52) 04/14/16 05:10 Alkaline Phosphatase 55 U/L (34-104) 04/14/16 05:10 Total Protein 6.2 gm/dL (6.0-8.3) 04/14/16 05:10 Albumin 3.1 gm/dL (4.2-5.5) L 04/14/16 05:10 Globulin 3.1 gm/dL 04/14/16 05:10 Albumin/Globulin Ratio 1.0 (1.0-1.8) 04/14/16 05:10 Triglycerides 111 mg/dL (<150) 04/11/16 05:18 Cholesterol 146 mg/dL (<200) 04/11/16 05:18 LDL Cholesterol Direct 93 mg/dL (75-193) 04/11/16 05:18 HDL Cholesterol 36 mg/dL (23-92) 04/11/16 05:18 TSH 5.54 uIU/ml (0.34-5.60) 04/13/16 05:26 Urine Source [place] 04/11/16 06:05 Urine Color [place]INK[place] 04/11/16 06:05 Urine Clarity CLEAR (CLEAR) 04/11/16 06:05 Urine pH 7.0 04/11/16 06:05 Ur Specific [place] 1.015 (1.005-1.030) 04/11/16 06:05 Urine Protein NEGATIVE mg/dL (NEGATIVE) 04/11/16 06:05 Urine Glucose (UA) NEGATIVE mg/dL (NEGATIVE) 04/11/16 06:05 Urine Ketones NEGATIVE mg/dL (NEGATIVE) 04/11/16 06:05 Urine Blood MODERATE (NEGATIVE) H 04/11/16 06:05 Urine Nitrate NEGATIVE (NEGATIVE) 04/11/16 06:05 Urine Bilirubin NEGATIVE (NEGATIVE) 04/11/16 06:05 Urine Urobilinogen 0.2 E.U./dL (0.2 - 1.0) 04/11/16 06:05 Ur Leukocyte Esterase NEGATIVE (NEGATIVE) 04/11/16 06:05 Urine RBC 50-100 /hpf (0-5) H 04/11/16 06:05 Urine WBC 0-2 /hpf (0-5) 04/11/16 06:05 Ur Epithelial Cells OCCASIONAL /lpf (FEW) 04/11/16 06:05 Urine Bacteria OCCASIONAL /hpf (NONE SEEN) 04/11/16 06:05 Ur Random Sodium 89 mmol/L 04/12/16 15:30 - Physical Exam Vitals and I&O: Vital Signs Temp 98.6 F 04/14/16 04:00 Pulse 76 04/14/16 04:00 Resp 17 04/14/16 04:00 BP 91/52 04/14/16 04:00 Pulse Ox 100 04/14/16 04:00 Intake & Output 04/13/16 04/14/16 04/14/16 18:59 06:59 18:59 Intake Total 2050 1350 Output Total 1800 1150 Balance 250 200 Intake: Intake, IV Amount 1000 1100 Levofloxacin 500mg/100mL 100 500 mg In 100 ml @ 100 mls/hr IV Q24HR [facility] Rx#: [id number] Sodium Chloride 0.9% 1, 1000 1000 000 ml @ 125 mls/hr IV . Q8H [facility] Rx#:[id number] Oral 1050 250 Output: Urine 1800 1150 Other: # Bowel Movements 1 Stool Characteristics Soft Soft Active Medications: Current Medications Acetaminophen (Tylenol) 650 mg PO Q6H PRN PRN Reason: Pain or Fever >101 Stop: 06/09/16 01:29 Last Admin: 04/13/16 23:12 Dose: 650 mg Alprazolam (Xanax) 0.5 mg PO Q12HR PRN; Protocol PRN Reason: Agitation Stop: 06/09/16 08:59 Last Admin: 04/10/16 22:12 Dose: 0.5 mg Aspirin (Aspirin Chewable) 81 mg PO DAILY [facility] Stop: 06/09/16 21:59 Last Admin: 04/14/16 08:01 Dose: 81 mg Heparin Sodium (Porcine) (Heparin) 5,000 units SUBQ Q12HR [facility] Stop: 06/09/16 20:59 Last Admin: 04/14/16 08:01 Dose: 5,000 units Levofloxacin (Levaquin Pb) 500 mg in 100 mls @ 100 mls/hr IV Q24HR [facility] Stop: 06/11/16 00:00 Last Infusion: 04/14/16 00:06 Dose: Infused Sodium Chloride (Nacl 0.9%) 1,000 mls @ 125 mls/hr IV .Q8H [facility] Stop: 06/09/16 01:59 Last Admin: 04/14/16 03:57 Dose: 125 mls/hr Insulin Aspart (Novolog Insulin Sliding Scale) 0 units SUBQ Q6HR [facility] PRN Reason: Protocol Stop: 06/09/16 05:59 Last Admin: 04/14/16 06:03 Dose: Not Given Midodrine (Proamatine) 5 mg PO TID [facility] Stop: 06/12/16 20:59 Last Admin: 04/14/16 08:01 Dose: 5 mg Miscellaneous (Vte Chemical Prophylaxis Screen/ Admission) 1 ea [facility] PRN PRN PRN Reason: PROTOCOL Stop: 06/09/16 11:29 Ondansetron HCl (Zofran) 4 mg IVP Q6H PRN PRN Reason: Nausea / Vomiting Stop: 06/09/16 01:32 Sodium Chloride (Nacl Tab) 1 gm PO BID [facility] Stop: 06/12/16 16:59 Last Admin: 04/14/16 08:01 Dose: 1 gm General: Alert, Other (Confused) HEENT: Atraumatic Neck: Supple Cardiovascular: Regular rate Lungs: Clear to auscultation Abdomen: Bowel sounds, Soft Extremities: Other (No edema) Neurological: Other (Unstable gait) Skin: Other (Warm and dry) Psych/Mental Status: Other (Confused) Assessment/Plan - Assessment Assessment: Patient is confused, not oriented, responding question, in no acute distress. Patient continue with Low BP. Dx: Stroke. Patient is more calm today. - Plan Plan: Awaiting cortisol, PT is order. Today we will tried to do MRI again. Will continue to monitor
--- NOTE | 2016-04-14 09:23 | Diagnostic Imaging Report ---
Left lower extremity Doppler venous ultrasound exam HISTORY: Pain/swelling Sonographic sector images were obtained through the deep venous systems of the left leg. Associated Doppler data was obtained. The exam demonstrates patency of the common femoral, superficial femoral, popliteal, and posterior tibial veins. Specifically, no thrombus is seen. There are normal compressibility and augmentation responses. IMPRESSION: Negative exam for deep vein thrombophlebitis.
[2016-04-14 09:34] LABS: BAND NEUTROPHILE 2 % (0-10); EOSINOPHIL 1 % (0-5); NEUTROPHILS 54 % (40-80); PLATELET ESTIMATE ADEQUATE (NORMAL); PLATELET MORPHOLOGY NORMAL (NORMAL); TOTAL CELLS COUNTED 100
--- NOTE | 2016-04-14 14:04 | Diagnostic Imaging Report ---
CT angiogram of the carotid arteries with intravenous contrast (CTA) HISTORY: Stroke, CVA Total DLP equals 365 CTDI equals 23.0 Following the ministration of intravenous contrast, axial sections were obtained from the base of the skull down to level below the aortic arch. The exam demonstrates normal opacification of the right common carotid artery. Severe calcified atherosclerotic plaque is noted within the distal carotid bulb and to a greater degree within the proximal portion of the right internal carotid. Greater than 90% stenosis seen through this region. The remainder of the right internal carotid artery exhibits normal opacification including the intracavernous portion. Relatively severe narrowing (greater than 80%) narrowing noted at the origin of the right external carotid artery. The exam of the left side demonstrates severe focal calcified atherosclerotic plaque at the origin of the left subclavian artery with virtual complete occlusion. Reconstitution of flow noted in the region of the horizontal segment. Calcified plaque also results in moderate (50%) narrowing at the origin of the left common carotid artery. Mild to moderate calcified plaque noted through the mid and distal portion of the left common carotid artery resulting in approximate 40-50% narrowing. There is severe narrowing (greater than 90%) noted in the midportion of the left common carotid artery without calcification. Calcified atherosclerotic plaque noted in the carotid bulb region and origin of the left internal carotid artery resulting in greater than 70% narrowing. There is normal opacification of the intracavernous portion of the left internal carotid artery. The left vertebral artery is barely visualized below the C3 level. There is reconstitution of normal opacification of flow within the distal vertebral arteries at the base of the skull. There is normal opacification of the basilar artery. IMPRESSION: 1. Severe calcified atherosclerotic plaque within the distal right carotid bulb and to a greater degree within the proximal most portion of the right internal carotid artery resulting in greater than 90% narrowing. Severe narrowing (greater than 90%) also noted at the origin of the right external carotid artery. 2. 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 3. Mild to moderate calcified plaque results in approximately 40-50% narrowing within the proximal midportion of the left common carotid artery. Severe narrowing (greater than 90%) noted within the mid distal portion of the left common carotid artery. Additionally, calcified atherosclerotic plaque results in approximately 70% narrowing within the left carotid bulb and origin of the left internal carotid artery. 4. Severe narrowing with barely perceptible opacification of the left vertebral artery from the aortic arch to the C3 level.
[2016-04-14] MEDS: Levofloxacin 500mg/100mL 500 MG/100 ML BAG IV SCH (23:44)
[2016-04-15] MEDS: INSULIN ASPART SLIDING SCALE 100 UNITS/ML UNIT SUBQ SCH ×4 (00:04→19:21)
[2016-04-15] MEDS: Sodium Chloride 0.9% 1,000 ML IV SCH ×2 (00:08→09:15)
--- NOTE | 2016-04-15 08:13 | General Progress Note ---
Subjective - Review of Systems Service Date: 04/15/16 Subjective: Patient confused, responding question Objective - Results Result Diagrams: 04/14/16 05:10 04/14/16 05:10 Recent Labs: Laboratory Last Values WBC 5.6 Th/cmm (4.8-10.8) 04/14/16 05:10 RBC 4.69 Mil/cmm (3.80-5.80) 04/14/16 05:10 Hgb 14.3 gm/dL (12.6-17.4) 04/14/16 05:10 Hct 42.2 % (39.0-49.0) 04/14/16 05:10 MCV 90.0 fl (80-99) 04/14/16 05:10 MCH 30.4 pg (27.0-31.0) 04/14/16 05:10 MCHC Differential 33.8 pg (28.0-36.0) 04/14/16 05:10 RDW 12.5 % (11.5-20.0) 04/14/16 05:10 Plt Count 173 Th/cmm (150-400) 04/14/16 05:10 MPV 8.8 fl 04/14/16 05:10 Neutrophils % 42.7 % (40.0-80.0) 04/13/16 05:26 Band Neutrophils % 2 % (0-10) 04/14/16 05:10 Lymphocytes % 41.0 % (20.0-50.0) 04/13/16 05:26 Monocytes % 8.4 % (2.0-10.0) 04/13/16 05:26 Eosinophils % 7.0 % (0.0-5.0) H 04/13/16 05:26 Basophils % 0.9 % (0.0-2.0) 04/13/16 05:26 Neutrophils (Manual) 54 % (40-80) 04/14/16 05:10 Lymphocytes 34 % (20-50) 04/14/16 05:10 Monocytes 8 % (2-10) 04/14/16 05:10 Eosinophils 1 % (0-5) 04/14/16 05:10 Atypical Lymphocytes 1 % 04/14/16 05:10 Platelet Estimate ADEQUATE (NORMAL) 04/14/16 05:10 Platelet Morphology NORMAL (NORMAL) 04/14/16 05:10 RBC Morph Micro Appear NORMAL (NORMAL) 04/14/16 05:10 Sodium 140 mEq/L (136-145) 04/14/16 05:10 Potassium 3.7 mEq/L (3.5-5.1) 04/14/16 05:10 Chloride 107 mEq/L (98-107) 04/14/16 05:10 Carbon Dioxide 27.3 mEq/L (21.0-31.0) 04/14/16 05:10 Anion Gap 9.4 (7.0-16.0) 04/14/16 05:10 BUN 8 mg/dL (7-25) 04/14/16 05:10 Creatinine 0.7 mg/dL (0.7-1.3) 04/14/16 05:10 Est GFR ( Amer) TNP 04/14/16 05:10 Est GFR (Non-Af Amer) TNP 04/14/16 05:10 BUN/Creatinine Ratio 11.4 04/14/16 05:10 Glucose 91 mg/dL (70-105) 04/14/16 05:10 POC Glucose 95 MG/DL (70 - 105) 04/15/16 05:42 Plasma/Ser Osmolality 287 mOsmol/kg (280-301) 04/13/16 06:26 Calcium 8.8 mg/dL (8.6-10.3) 04/14/16 05:10 Total Bilirubin 0.5 mg/dL (0.3-1.0) 04/14/16 05:10 AST 22 U/L (13-39) 04/14/16 05:10 ALT 19 U/L (7-52) 04/14/16 05:10 Alkaline Phosphatase 55 U/L (34-104) 04/14/16 05:10 Total Protein 6.2 gm/dL (6.0-8.3) 04/14/16 05:10 Albumin 3.1 gm/dL (4.2-5.5) L 04/14/16 05:10 Globulin 3.1 gm/dL 04/14/16 05:10 Albumin/Globulin Ratio 1.0 (1.0-1.8) 04/14/16 05:10 Triglycerides 111 mg/dL (<150) 04/11/16 05:18 Cholesterol 146 mg/dL (<200) 04/11/16 05:18 LDL Cholesterol Direct 93 mg/dL (75-193) 04/11/16 05:18 HDL Cholesterol 36 mg/dL (23-92) 04/11/16 05:18 TSH 5.54 uIU/ml (0.34-5.60) 04/13/16 05:26 Total Cortisol 9.1 04/12/16 05:08 Urine Source [place] 04/11/16 06:05 Urine Color PINKISH 04/11/16 06:05 Urine Clarity CLEAR (CLEAR) 04/11/16 06:05 Urine pH 7.0 04/11/16 06:05 Ur Specific Colon 1.015 (1.005-1.030) 04/11/16 06:05 Urine Protein NEGATIVE mg/dL (NEGATIVE) 04/11/16 06:05 Urine Glucose (UA) NEGATIVE mg/dL (NEGATIVE) 04/11/16 06:05 Urine Ketones NEGATIVE mg/dL (NEGATIVE) 04/11/16 06:05 Urine Blood MODERATE (NEGATIVE) H 04/11/16 06:05 Urine Nitrate NEGATIVE (NEGATIVE) 04/11/16 06:05 Urine Bilirubin NEGATIVE (NEGATIVE) 04/11/16 06:05 Urine Urobilinogen 0.2 E.U./dL (0.2 - 1.0) 04/11/16 06:05 Ur Leukocyte Esterase NEGATIVE (NEGATIVE) 04/11/16 06:05 Urine RBC 50-100 /hpf (0-5) H 04/11/16 06:05 Urine WBC 0-2 /hpf (0-5) 04/11/16 06:05 Ur Epithelial Cells OCCASIONAL /lpf (FEW) 04/11/16 06:05 Urine Bacteria OCCASIONAL /hpf (NONE SEEN) 04/11/16 06:05 Urine Osmolality 197 mOsmol/kg 04/13/16 10:00 Ur Random Sodium 89 mmol/L 04/12/16 15:30 - Physical Exam Vitals and I&O: Vital Signs Temp 98.5 F 04/15/16 04:00 Pulse 64 04/15/16 04:00 Resp 18 04/15/16 04:00 BP 109/46 04/15/16 04:00 Pulse Ox 100 04/15/16 04:00 Intake & Output 04/14/16 04/15/16 04/15/16 18:59 06:59 18:59 Intake Total 2152.083 918.75 Output Total 3000 Balance -847.917 918.75 Intake: Intake, IV Amount 1352.083 918.75 Levofloxacin 500mg/100mL 100 500 mg In 100 ml @ 100 mls/hr IV Q24HR [facility] Rx#: [id number] Sodium Chloride 0.9% 1, 1352.083 818.75 000 ml @ 125 mls/hr IV . Q8H [facility] Rx#:[id number] Oral 800 Output: Urine 3000 Other: # Bowel Movements 1 Stool Characteristics Soft Active Medications: Current Medications Acetaminophen (Tylenol) 650 mg PO Q6H PRN PRN Reason: Pain or Fever >101 Stop: 06/09/16 01:29 Last Admin: 04/13/16 23:12 Dose: 650 mg Alprazolam (Xanax) 0.5 mg PO Q12HR PRN; Protocol PRN Reason: Agitation Stop: 06/09/16 08:59 Last Admin: 04/15/16 03:49 Dose: 0.5 mg Aspirin (Aspirin Chewable) 81 mg PO DAILY [facility] Stop: 06/09/16 21:59 Last Admin: 04/14/16 08:01 Dose: 81 mg Heparin Sodium (Porcine) (Heparin) 5,000 units SUBQ Q12HR [facility] Stop: 06/09/16 20:59 Last Admin: 04/14/16 20:20 Dose: 5,000 units Levofloxacin (Levaquin Pb) 500 mg in 100 mls @ 100 mls/hr IV Q24HR [facility] Stop: 06/11/16 00:00 Last Infusion: 04/15/16 03:47 Dose: Infused Sodium Chloride (Nacl 0.9%) 1,000 mls @ 125 mls/hr IV .Q8H [facility] Stop: 06/09/16 01:59 Last Admin: 04/15/16 00:08 Dose: 125 mls/hr Insulin Aspart (Novolog Insulin Sliding Scale) 0 units SUBQ Q6HR [facility] PRN Reason: Protocol Stop: 06/09/16 05:59 Last Admin: 04/15/16 05:44 Dose: Not Given Midodrine (Proamatine) 5 mg PO TID [facility] Stop: 06/12/16 20:59 Last Admin: 04/14/16 20:20 Dose: 5 mg Miscellaneous (Vte Chemical Prophylaxis Screen/ Admission) 1 ea [facility] PRN PRN PRN Reason: PROTOCOL Stop: 06/09/16 11:29 Ondansetron HCl (Zofran) 4 mg IVP Q6H PRN PRN Reason: Nausea / Vomiting Stop: 06/09/16 01:32 Sodium Chloride (Nacl Tab) 1 gm PO BID [facility] Stop: 06/12/16 16:59 Last Admin: 04/14/16 17:35 Dose: 1 gm General: Alert, Other (Confused, not oriented) HEENT: Atraumatic Neck: Supple Cardiovascular: Regular rate Abdomen: Bowel sounds, Soft Extremities: Other Neurological: Other (Unstable gait) Skin: Other (Warm and dry) Psych/Mental Status: Other (Confused) Assessment/Plan - Assessment Assessment: Patient is confused, not oriented, responding question, in no acute distress. Patient continue with Low BP. Dx: Stroke. Patient is more calm today. - Plan Plan: Awaiting cortisol, PT is order. Ct angio shows 90 % occlusion of right and left carotids. Transfer to an upper level of care will start. Will continue to monitor Nutritional Asmnt/Malnutr-PDOC - Dietary Evaluation Malnutrition Findings (Please click <Entered> for more info): Nutritional Asmnt/Malnutrition Start: 04/14/16 18: 25 Text: Status: Complete Freq: Document 04/14/16 18:25 [facility] (Rec: 04/14/16 18:36 [facility] [id number]) Nutritional Asmnt/Malnutrition Patient General Information Nutritional Screening Moderate Risk Screening Pertinent Medical Hx/Surgical Hx None Subjective Information Pt is a 70-year-old male admitted with chief complaint of confusion and weakness to his right side. Pt was awake during time of visit. Pt speaks Mohawk only. Daughter was at bedside and able to provide pt's nutritional hx. Pt appears well nourished with no signs of muscle or fat depletion. Daughter reports that pt is tolerating mechanical soft ground texture , but he cannot tolerate chopped. Pt does not have his dentures here at hospital. Daughter reports that pt had a recent change in appetite and wt in the past 3 months. Pt typically eats 2 meals with snacks, UBW 180#, then diet decreased to 1 meal a day and pt lose 12-13#. Current Diet Order/ Nutrition Support Mechanical soft ground Patient / S.O Can Pertinent Medications Novolog, Levaquin, Zofran, NaCl 0.9%, NaCl tab Pertinent Labs Reviewed Nutritional Hx/Data Height 1.68 m Height (Calculated Centimeters) 167.6 Current Weight (lbs) 76.657 kg Weight (Calculated Kilograms) 76.7 Weight (Calculated Grams) 87082.1 Usual body Weight (lbs) 180 % Usual Body Weight 94 [place] Body Weight 142 % [place] Body Weight 119 Recent Weight Change Yes Weight Status Overweight GI Symptoms GI Symptoms Last BM Difficult in: Chewing Food Allergies No Cultural/Ethnic/Episcopal Belief No preferences. Usual diet at home Regular Skin Integrity/Comment: Steven 15. Skin intact. Current %PO Good (75-100%) Estimated Nutritional Goals BEE in Kcals: Using Current wt Calories/Kcals/Kg Based on CBW 76.8 kg, wt loss Kcals Calculated 5379-6279 ml/day (30-35 Protein: Using Current wt Protein g/kg: Based on CBW 76.8 kg, maintenance Protein Calculated 77 gm/day (1 gm/kg) Fluid: ml 6053-2923 ml/day (30-35 ml/kg CBW) Nutritional Problem 1. Problem Problem Unintentional weight loss related to Etiology change in mentation and appetite as evidenced by Signs/Symptoms: daughter reports 12-13# wt loss in 3 months, 6.7% body wt . Malnutrition Alert Interpretation of weight loss Non-Severe up to 7.5% in 3 month (mod) Is there a minimum of two criteria No selected? Query Text:Check all the applicable criteria. A minimum of two criteria are recommended for diagnosis of either severe or non-severe malnutrition. Malnutrition Related to Morbid Obesity Malnutrition related to morbid obesity No Intervention/Recommendation Comments 1. Continue with current diet. 2. Recommend one Boost daily to help promote nutrient intake. 3. Consider swallow evaluation if pt cannot tolerate mechanical soft ground texture . Expected Outcomes/Goals Expected Outcomes/Goals Have pt meet at least 75% of estimated nutritional needs and stable wt. Physician Parameters for PEM Serum Albumin (g/dl) 3.1 - 3.4 (Mild) 04/14/16 18:36 Dietitian Notes by Anna Conde Nutrition Note Initial Nutrition Assessment completed by Anna Conde on 04/14/16. Please refer to nutrition assessment under Patient Care tab of EMR. Nutrition Recommendations: 1. Continue with current diet. 2. Recommend one Boost daily to help promote nutrient intake. 3. Consider swallow evaluation if pt cannot tolerate mechanical soft ground texture. F/U in 3-5 days as Moderate risk, 04/17-04/19. Initialized on 04/14/16 18:36 - END OF NOTE
[2016-04-15] MEDS: Aspirin 81mg Chewable Tab PO SCH (09:15)
[2016-04-15 11:17] LABS: % BASOPHILS 0.7 % (0.0-2.0); % EOSINOPHILS 6.1 % (0.0-5.0); % LYMPHOCYTES 35.7 % (20.0-50.0); % MONOCYTES 8.4 % (2.0-10.0); % NEUTROPHILS 49.1 % (40.0-80.0); HEMATOCRIT 43.5 % (39.0-49.0); HEMOGLOBIN 14.6 gm/dL (12.6-17.4); MEAN CELL VOLUME 89.4 fl (80-99); MEAN CORPUSCULAR HEMOGLOBIN 29.9 pg (27.0-31.0); MEAN CORPUSCULAR HGB CONC 33.5 pg (28.0-36.0); NEUTROPHILE ABSOLUTE 2.8 Th/cmm (1.8-8.0); PLATELET COUNT 189 Th/cmm (150-400); RED BLOOD COUNT 4.87 Mil/cmm (3.80-5.80); RED CELL DISTRIBUTION WIDTH 12.2 % (11.5-20.0); WHITE BLOOD COUNT 5.6 Th/cmm (4.8-10.8)
[2016-04-15 12:51] LABS: ALB/GLOB RATIO 1.1 (1.0-1.8); ALKALINE PHOSPHATASE 58 U/L (34-104); ANION GAP 10.6 (7.0-16.0); BILIRUBIN,TOTAL 0.4 mg/dL (0.3-1.0); BUN - UREA NITROGEN 7 mg/dL (7-25); CALCIUM SERUM 9.1 mg/dL (8.6-10.3); CHLORIDE 106 mEq/L (98-107); CREATININE - SERUM 0.7 mg/dL (0.7-1.3); GLUCOSE 119 mg/dL (70-105); POTASSIUM SERUM 3.6 mEq/L (3.5-5.1); SGOT 23 U/L (13-39); SGPT/ALT 23 U/L (7-52); SODIUM SERUM 141 mEq/L (136-145)
--- NOTE | 2016-04-15 14:30 | General Progress Note ---
Subjective - Review of Systems Service Date: 04/15/16 Subjective: has bilateral strokes and severe carotid stenosis smokes 1 pack per day, and drinks too discussed with Dr. Hahn, texted Dr. Bullock suggest wait of 4 to 6 weeks before revascularization discussed with daughter pathology and treatment Objective - Results Result Diagrams: 04/15/16 11:05 04/15/16 11:05 Recent Labs: Laboratory Last Values WBC 5.6 Th/cmm (4.8-10.8) 04/15/16 11:05 RBC 4.87 Mil/cmm (3.80-5.80) 04/15/16 11:05 Hgb 14.6 gm/dL (12.6-17.4) 04/15/16 11:05 Hct 43.5 % (39.0-49.0) 04/15/16 11:05 MCV 89.4 fl (80-99) 04/15/16 11:05 MCH 29.9 pg (27.0-31.0) 04/15/16 11:05 MCHC Differential 33.5 pg (28.0-36.0) 04/15/16 11:05 RDW 12.2 % (11.5-20.0) 04/15/16 11:05 Plt Count 189 Th/cmm (150-400) 04/15/16 11:05 MPV 8.0 fl 04/15/16 11:05 Neutrophils % 49.1 % (40.0-80.0) 04/15/16 11:05 Band Neutrophils % 2 % (0-10) 04/14/16 05:10 Lymphocytes % 35.7 % (20.0-50.0) 04/15/16 11:05 Monocytes % 8.4 % (2.0-10.0) 04/15/16 11:05 Eosinophils % 6.1 % (0.0-5.0) H 04/15/16 11:05 Basophils % 0.7 % (0.0-2.0) 04/15/16 11:05 Neutrophils (Manual) 54 % (40-80) 04/14/16 05:10 Lymphocytes 34 % (20-50) 04/14/16 05:10 Monocytes 8 % (2-10) 04/14/16 05:10 Eosinophils 1 % (0-5) 04/14/16 05:10 Atypical Lymphocytes 1 % 04/14/16 05:10 Platelet Estimate ADEQUATE (NORMAL) 04/14/16 05:10 Platelet Morphology NORMAL (NORMAL) 04/14/16 05:10 RBC Morph Micro Appear NORMAL (NORMAL) 04/14/16 05:10 Sodium 141 mEq/L (136-145) 04/15/16 11:05 Potassium 3.6 mEq/L (3.5-5.1) 04/15/16 11:05 Chloride 106 mEq/L (98-107) 04/15/16 11:05 Carbon Dioxide 28.0 mEq/L (21.0-31.0) 04/15/16 11:05 Anion Gap 10.6 (7.0-16.0) 04/15/16 11:05 BUN 7 mg/dL (7-25) 04/15/16 11:05 Creatinine 0.7 mg/dL (0.7-1.3) 04/15/16 11:05 Est GFR ( Amer) TNP 04/15/16 11:05 Est GFR (Non-Af Amer) TNP 04/15/16 11:05 BUN/Creatinine Ratio 10.0 04/15/16 11:05 Glucose 119 mg/dL (70-105) H 04/15/16 11:05 POC Glucose 112 MG/DL (70 - 105) H 04/15/16 12:00 Plasma/Ser Osmolality 287 mOsmol/kg (280-301) 04/13/16 06:26 Calcium 9.1 mg/dL (8.6-10.3) 04/15/16 11:05 Total Bilirubin 0.4 mg/dL (0.3-1.0) 04/15/16 11:05 AST 23 U/L (13-39) 04/15/16 11:05 ALT 23 U/L (7-52) 04/15/16 11:05 Alkaline Phosphatase 58 U/L (34-104) 04/15/16 11:05 Total Protein 6.4 gm/dL (6.0-8.3) 04/15/16 11:05 Albumin 3.3 gm/dL (4.2-5.5) L 04/15/16 11:05 Globulin 3.1 gm/dL 04/15/16 11:05 Albumin/Globulin Ratio 1.1 (1.0-1.8) 04/15/16 11:05 Triglycerides 111 mg/dL (<150) 04/11/16 05:18 Cholesterol 146 mg/dL (<200) 04/11/16 05:18 LDL Cholesterol Direct 93 mg/dL (75-193) 04/11/16 05:18 HDL Cholesterol 36 mg/dL (23-92) 04/11/16 05:18 TSH 5.54 uIU/ml (0.34-5.60) 04/13/16 05:26 Total Cortisol 9.1 04/12/16 05:08 Urine Source [place] 04/11/16 06:05 Urine Color PINKISH 04/11/16 06:05 Urine Clarity CLEAR (CLEAR) 04/11/16 06:05 Urine pH 7.0 04/11/16 06:05 Ur Specific [place] 1.015 (1.005-1.030) 04/11/16 06:05 Urine Protein NEGATIVE mg/dL (NEGATIVE) 04/11/16 06:05 Urine Glucose (UA) NEGATIVE mg/dL (NEGATIVE) 04/11/16 06:05 Urine Ketones NEGATIVE mg/dL (NEGATIVE) 04/11/16 06:05 Urine Blood MODERATE (NEGATIVE) H 04/11/16 06:05 Urine Nitrate NEGATIVE (NEGATIVE) 04/11/16 06:05 Urine Bilirubin NEGATIVE (NEGATIVE) 04/11/16 06:05 Urine Urobilinogen 0.2 E.U./dL (0.2 - 1.0) 04/11/16 06:05 Ur Leukocyte Esterase NEGATIVE (NEGATIVE) 04/11/16 06:05 Urine RBC 50-100 /hpf (0-5) H 04/11/16 06:05 Urine WBC 0-2 /hpf (0-5) 04/11/16 06:05 Ur Epithelial Cells OCCASIONAL /lpf (FEW) 04/11/16 06:05 Urine Bacteria OCCASIONAL /hpf (NONE SEEN) 04/11/16 06:05 Urine Osmolality 197 mOsmol/kg 04/13/16 10:00 Ur Random Sodium 89 mmol/L 04/12/16 15:30 - Physical Exam Vitals and I&O: Vital Signs Temp 98.5 F 04/15/16 04:00 Pulse 64 04/15/16 04:00 Resp 18 04/15/16 08:00 BP 109/46 04/15/16 04:00 Pulse Ox 100 04/15/16 04:00 Intake & Output 04/14/16 04/15/16 04/15/16 18:59 06:59 18:59 Intake Total 2152.083 918.75 1000 Output Total 3000 Balance -847.917 918.75 1000 Intake: Intake, IV Amount 1352.083 918.75 1000 Levofloxacin 500mg/100mL 100 500 mg In 100 ml @ 100 mls/hr IV Q24HR [facility] Rx#: [id number] Sodium Chloride 0.9% 1, 1352.083 818.75 1000 000 ml @ 125 mls/hr IV . Q8H [facility] Rx#:[id number] Oral 800 Output: Urine 3000 Other: # Bowel Movements 1 Stool Characteristics Soft Active Medications: Current Medications Acetaminophen (Tylenol) 650 mg PO Q6H PRN PRN Reason: Pain or Fever >101 Stop: 06/09/16 01:29 Last Admin: 04/13/16 23:12 Dose: 650 mg Alprazolam (Xanax) 0.5 mg PO Q12HR PRN; Protocol PRN Reason: Agitation Stop: 06/09/16 08:59 Last Admin: 04/15/16 03:49 Dose: 0.5 mg Aspirin (Aspirin Chewable) 81 mg PO DAILY [facility] Stop: 06/09/16 21:59 Last Admin: 04/15/16 09:15 Dose: 81 mg Heparin Sodium (Porcine) (Heparin) 5,000 units SUBQ Q12HR [facility] Stop: 06/09/16 20:59 Last Admin: 04/15/16 09:15 Dose: 5,000 units Levofloxacin (Levaquin Pb) 500 mg in 100 mls @ 100 mls/hr IV Q24HR [facility] Stop: 06/11/16 00:00 Last Infusion: 04/15/16 03:47 Dose: Infused Sodium Chloride (Nacl 0.9%) 1,000 mls @ 125 mls/hr IV .Q8H [facility] Stop: 06/09/16 01:59 Last Admin: 04/15/16 09:15 Dose: 125 mls/hr Insulin Aspart (Novolog Insulin Sliding Scale) 0 units SUBQ Q6HR [facility] PRN Reason: Protocol Stop: 06/09/16 05:59 Last Admin: 04/15/16 12:01 Dose: Not Given Midodrine (Proamatine) 5 mg PO TID [facility] Stop: 06/12/16 20:59 Last Admin: 04/15/16 09:15 Dose: 5 mg Miscellaneous (Vte Chemical Prophylaxis Screen/ Admission) 1 ea [facility] PRN PRN PRN Reason: PROTOCOL Stop: 06/09/16 11:29 Ondansetron HCl (Zofran) 4 mg IVP Q6H PRN PRN Reason: Nausea / Vomiting Stop: 06/09/16 01:32 Sodium Chloride (Nacl Tab) 1 gm PO BID [facility] Stop: 06/12/16 16:59 Last Admin: 04/15/16 09:15 Dose: 1 gm Nutritional Asmnt/Malnutr-PDOC - Dietary Evaluation Malnutrition Findings (Please click <Entered> for more info): Nutritional Asmnt/Malnutrition Start: 04/14/16 18: 25 Text: Status: Complete Freq: Document 04/14/16 18:25 [facility] (Rec: 04/14/16 18:36 [facility] [id number]) Nutritional Asmnt/Malnutrition Patient General Information Nutritional Screening Moderate Risk Screening Pertinent Medical Hx/Surgical Hx None Subjective Information Pt is a 70-year-old male admitted with chief complaint of confusion and weakness to his right side. Pt was awake during time of visit. Pt speaks Portuguese only. Daughter was at bedside and able to provide pt's nutritional hx. Pt appears well nourished with no signs of muscle or fat depletion. Daughter reports that pt is tolerating mechanical soft ground texture , but he cannot tolerate chopped. Pt does not have his dentures here at hospital. Daughter reports that pt had a recent change in appetite and wt in the past 3 months. Pt typically eats 2 meals with snacks, UBW 180#, then diet decreased to 1 meal a day and pt lose 12-13#. Current Diet Order/ Nutrition Support Mechanical soft ground Patient / S.O Can Pertinent Medications Novolog, Levaquin, Zofran, NaCl 0.9%, NaCl tab Pertinent Labs Reviewed Nutritional Hx/Data Height 1.68 m Height (Calculated Centimeters) 167.6 Current Weight (lbs) 76.657 kg Weight (Calculated Kilograms) 76.7 Weight (Calculated Grams) 69172.1 Usual body Weight (lbs) 180 % Usual Body Weight 94 [place] Body Weight 142 % [place] Body Weight 119 Recent Weight Change Yes Weight Status Overweight GI Symptoms GI Symptoms Last BM Difficult in: Chewing Food Allergies No Cultural/Ethnic/Episcopal Belief No preferences. Usual diet at home Regular Skin Integrity/Comment: Steven 15. Skin intact. Current %PO Good (75-100%) Estimated Nutritional Goals BEE in Kcals: Using Current wt Calories/Kcals/Kg Based on CBW 76.8 kg, wt loss Kcals Calculated 9175-4991 ml/day (30-35 Protein: Using Current wt Protein g/kg: Based on CBW 76.8 kg, maintenance Protein Calculated 77 gm/day (1 gm/kg) Fluid: ml 3329-6451 ml/day (30-35 ml/kg CBW) Nutritional Problem 1. Problem Problem Unintentional weight loss related to Etiology change in mentation and appetite as evidenced by Signs/Symptoms: daughter reports 12-13# wt loss in 3 months, 6.7% body wt . Malnutrition Alert Interpretation of weight loss Non-Severe up to 7.5% in 3 month (mod) Is there a minimum of two criteria No selected? Query Text:Check all the applicable criteria. A minimum of two criteria are recommended for diagnosis of either severe or non-severe malnutrition. Malnutrition Related to Morbid Obesity Malnutrition related to morbid obesity No Intervention/Recommendation Comments 1. Continue with current diet. 2. Recommend one Boost daily to help promote nutrient intake. 3. Consider swallow evaluation if pt cannot tolerate mechanical soft ground texture . Expected Outcomes/Goals Expected Outcomes/Goals Have pt meet at least 75% of estimated nutritional needs and stable wt. Physician Parameters for PEM Serum Albumin (g/dl) 3.1 - 3.4 (Mild) 04/14/16 18:36 Dietitian Notes by Anna Conde Nutrition Note Initial Nutrition Assessment completed by Anna Conde on 04/14/16. Please refer to nutrition assessment under Patient Care tab of EMR. Nutrition Recommendations: 1. Continue with current diet. 2. Recommend one Boost daily to help promote nutrient intake. 3. Consider swallow evaluation if pt cannot tolerate mechanical soft ground texture. F/U in 3-5 days as Moderate risk, 04/17-04/19. Initialized on 04/14/16 18:36 - END OF NOTE
--- NOTE | 2016-04-15 18:44 | Consultation ---
REFERRING PHYSICIAN: Dr. Hahn. REASON FOR CONSULTATION: CVA. Thank you for referring this patient to me. HISTORY OF PRESENT ILLNESS: This is a 70-year-old male who was seen at [facility] initially and was found to have stroke on the left side of the brain with weakness of the right arm and leg. The patient was transferred to [facility] [place]. The patient has been seen by a neurologist in consult and the head CT and carotid arteriogram was done and this showed severe pathology including greater than 90% stenosis of the origin of the right internal carotid artery and greater than 90% narrowing of the left common carotid artery and occlusion of the left subclavian artery. The vertebral artery on the left side is not visualized. The patient exhibits minimal weakness at this point and is coherent, but with very poor memory. The patient is a heavy smoker and drinker. Festus discussion was made with the daughter regarding wait for a period of 4 weeks at least to allow for some healing of the acute stroke and then undergoing revascularization procedure at that point. This was communicated with Dr. Hahn as well. The patient can be discharged on oral anticoagulation and will await Dr. Bullock's response as carmen. JOB# [id number] JUAN
[2016-04-16] MEDS: Levofloxacin 500mg/100mL 500 MG/100 ML BAG IV SCH (00:47)
[2016-04-16] MEDS: INSULIN ASPART SLIDING SCALE 100 UNITS/ML UNIT SUBQ SCH ×3 (00:55→12:05)
--- NOTE | 2016-04-16 09:12 | General Progress Note ---
Subjective - Review of Systems Service Date: 04/16/16 Subjective: Patient confused, responding question. Objective - Results Result Diagrams: 04/15/16 11:05 04/15/16 11:05 Recent Labs: Laboratory Last Values WBC 5.6 Th/cmm (4.8-10.8) 04/15/16 11:05 RBC 4.87 Mil/cmm (3.80-5.80) 04/15/16 11:05 Hgb 14.6 gm/dL (12.6-17.4) 04/15/16 11:05 Hct 43.5 % (39.0-49.0) 04/15/16 11:05 MCV 89.4 fl (80-99) 04/15/16 11:05 MCH 29.9 pg (27.0-31.0) 04/15/16 11:05 MCHC Differential 33.5 pg (28.0-36.0) 04/15/16 11:05 RDW 12.2 % (11.5-20.0) 04/15/16 11:05 Plt Count 189 Th/cmm (150-400) 04/15/16 11:05 MPV 8.0 fl 04/15/16 11:05 Neutrophils % 49.1 % (40.0-80.0) 04/15/16 11:05 Band Neutrophils % 2 % (0-10) 04/14/16 05:10 Lymphocytes % 35.7 % (20.0-50.0) 04/15/16 11:05 Monocytes % 8.4 % (2.0-10.0) 04/15/16 11:05 Eosinophils % 6.1 % (0.0-5.0) H 04/15/16 11:05 Basophils % 0.7 % (0.0-2.0) 04/15/16 11:05 Neutrophils (Manual) 54 % (40-80) 04/14/16 05:10 Lymphocytes 34 % (20-50) 04/14/16 05:10 Monocytes 8 % (2-10) 04/14/16 05:10 Eosinophils 1 % (0-5) 04/14/16 05:10 Atypical Lymphocytes 1 % 04/14/16 05:10 Platelet Estimate ADEQUATE (NORMAL) 04/14/16 05:10 Platelet Morphology NORMAL (NORMAL) 04/14/16 05:10 RBC Morph Micro Appear NORMAL (NORMAL) 04/14/16 05:10 Sodium 141 mEq/L (136-145) 04/15/16 11:05 Potassium 3.6 mEq/L (3.5-5.1) 04/15/16 11:05 Chloride 106 mEq/L (98-107) 04/15/16 11:05 Carbon Dioxide 28.0 mEq/L (21.0-31.0) 04/15/16 11:05 Anion Gap 10.6 (7.0-16.0) 04/15/16 11:05 BUN 7 mg/dL (7-25) 04/15/16 11:05 Creatinine 0.7 mg/dL (0.7-1.3) 04/15/16 11:05 Est GFR ( Amer) TNP 04/15/16 11:05 Est GFR (Non-Af Amer) TNP 04/15/16 11:05 BUN/Creatinine Ratio 10.0 04/15/16 11:05 Glucose 119 mg/dL (70-105) H 04/15/16 11:05 POC Glucose 88 MG/DL (70 - 105) 04/16/16 06:13 Plasma/Ser Osmolality 287 mOsmol/kg (280-301) 04/13/16 06:26 Calcium 9.1 mg/dL (8.6-10.3) 04/15/16 11:05 Total Bilirubin 0.4 mg/dL (0.3-1.0) 04/15/16 11:05 AST 23 U/L (13-39) 04/15/16 11:05 ALT 23 U/L (7-52) 04/15/16 11:05 Alkaline Phosphatase 58 U/L (34-104) 04/15/16 11:05 Total Protein 6.4 gm/dL (6.0-8.3) 04/15/16 11:05 Albumin 3.3 gm/dL (4.2-5.5) L 04/15/16 11:05 Globulin 3.1 gm/dL 04/15/16 11:05 Albumin/Globulin Ratio 1.1 (1.0-1.8) 04/15/16 11:05 Triglycerides 111 mg/dL (<150) 04/11/16 05:18 Cholesterol 146 mg/dL (<200) 04/11/16 05:18 LDL Cholesterol Direct 93 mg/dL (75-193) 04/11/16 05:18 HDL Cholesterol 36 mg/dL (23-92) 04/11/16 05:18 TSH 5.54 uIU/ml (0.34-5.60) 04/13/16 05:26 Total Cortisol 9.1 04/12/16 05:08 Urine Source [place] 04/11/16 06:05 Urine Color [place]INK[place] 04/11/16 06:05 Urine Clarity CLEAR (CLEAR) 04/11/16 06:05 Urine pH 7.0 04/11/16 06:05 Ur Specific [place] 1.015 (1.005-1.030) 04/11/16 06:05 Urine Protein NEGATIVE mg/dL (NEGATIVE) 04/11/16 06:05 Urine Glucose (UA) NEGATIVE mg/dL (NEGATIVE) 04/11/16 06:05 Urine Ketones NEGATIVE mg/dL (NEGATIVE) 04/11/16 06:05 Urine Blood MODERATE (NEGATIVE) H 04/11/16 06:05 Urine Nitrate NEGATIVE (NEGATIVE) 04/11/16 06:05 Urine Bilirubin NEGATIVE (NEGATIVE) 04/11/16 06:05 Urine Urobilinogen 0.2 E.U./dL (0.2 - 1.0) 04/11/16 06:05 Ur Leukocyte Esterase NEGATIVE (NEGATIVE) 04/11/16 06:05 Urine RBC 50-100 /hpf (0-5) H 04/11/16 06:05 Urine WBC 0-2 /hpf (0-5) 04/11/16 06:05 Ur Epithelial Cells OCCASIONAL /lpf (FEW) 04/11/16 06:05 Urine Bacteria OCCASIONAL /hpf (NONE SEEN) 04/11/16 06:05 Urine Osmolality 197 mOsmol/kg 04/13/16 10:00 Ur Random Sodium 89 mmol/L 04/12/16 15:30 - Physical Exam Vitals and I&O: Vital Signs Temp 98.6 F 04/16/16 04:00 Pulse 78 04/16/16 04:00 Resp 18 04/16/16 04:00 BP 95/65 04/16/16 04:00 Pulse Ox 99 04/16/16 04:00 Intake & Output 04/15/16 04/16/16 04/16/16 18:59 06:59 18:59 Intake Total 1700 100 Output Total 1800 Balance -100 100 Intake: Intake, IV Amount 1000 100 Levofloxacin 500mg/100mL 100 500 mg In 100 ml @ 100 mls/hr IV Q24HR [facility] Rx#: [id number] Sodium Chloride 0.9% 1, 1000 000 ml @ 125 mls/hr IV . Q8H [facility] Rx#:[id number] Oral 700 Output: Urine 1800 Other: # Bowel Movements 1 Active Medications: Current Medications Acetaminophen (Tylenol) 650 mg PO Q6H PRN PRN Reason: Pain or Fever >101 Stop: 06/09/16 01:29 Last Admin: 04/13/16 23:12 Dose: 650 mg Alprazolam (Xanax) 0.5 mg PO Q12HR PRN; Protocol PRN Reason: Agitation Stop: 06/09/16 08:59 Last Admin: 04/15/16 03:49 Dose: 0.5 mg Aspirin (Aspirin Chewable) 81 mg PO DAILY [facility] Stop: 06/09/16 21:59 Last Admin: 04/15/16 09:15 Dose: 81 mg Clopidogrel Bisulfate (Plavix) 75 mg PO DAILY [facility] Stop: 06/15/16 08:59 Heparin Sodium (Porcine) (Heparin) 5,000 units SUBQ Q12HR [facility] Stop: 06/09/16 20:59 Last Admin: 04/15/16 20:55 Dose: 5,000 units Levofloxacin (Levaquin Pb) 500 mg in 100 mls @ 100 mls/hr IV Q24HR [facility] Stop: 06/11/16 00:00 Last Infusion: 04/16/16 01:47 Dose: Infused Sodium Chloride (Nacl 0.9%) 1,000 mls @ 125 mls/hr IV .Q8H [facility] Stop: 06/09/16 01:59 Last Admin: 04/15/16 09:15 Dose: 125 mls/hr Insulin Aspart (Novolog Insulin Sliding Scale) 0 units SUBQ Q6HR [facility] PRN Reason: Protocol Stop: 06/09/16 05:59 Last Admin: 04/16/16 06:00 Dose: Not Given Midodrine (Proamatine) 5 mg PO TID [facility] Stop: 06/12/16 20:59 Last Admin: 04/15/16 20:55 Dose: 5 mg Miscellaneous (Vte Chemical Prophylaxis Screen/ Admission) 1 ea [facility] PRN PRN PRN Reason: PROTOCOL Stop: 06/09/16 11:29 Ondansetron HCl (Zofran) 4 mg IVP Q6H PRN PRN Reason: Nausea / Vomiting Stop: 06/09/16 01:32 Sodium Chloride (Nacl Tab) 1 gm PO BID [facility] Stop: 06/12/16 16:59 Last Admin: 04/15/16 17:10 Dose: 1 gm General: Alert, Other (Confused) HEENT: Atraumatic Neck: Supple Cardiovascular: Regular rate Lungs: Clear to auscultation Abdomen: Bowel sounds, Soft Extremities: Other (No edema) Neurological: Other (Unstable gait) Skin: Other (Warm and dry) Psych/Mental Status: Other (Confused) Assessment/Plan - Assessment Assessment: Patient is confused, not oriented, responding question, in no acute distress. Patient continue confused. Patient already seen by surgery and recommendation was to anticuagulation for 2 weeks and do surgery. 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 Transfer to an upper level of care will start. Will continue to monitor Nutritional Asmnt/Malnutr-PDOC - Dietary Evaluation Malnutrition Findings (Please click <Entered> for more info): Nutritional Asmnt/Malnutrition Start: 04/14/16 18: 25 Text: Status: Complete Freq: Document 04/14/16 18:25 [facility] (Rec: 04/14/16 18:36 [facility] [id number]) Nutritional Asmnt/Malnutrition Patient General Information Nutritional Screening Moderate Risk Screening Pertinent Medical Hx/Surgical Hx None Subjective Information Pt is a 70-year-old male admitted with chief complaint of confusion and weakness to his right side. Pt was awake during time of visit. Pt speaks Polish only. Daughter was at bedside and able to provide pt's nutritional hx. Pt appears well nourished with no signs of muscle or fat depletion. Daughter reports that pt is tolerating mechanical soft ground texture , but he cannot tolerate chopped. Pt does not have his dentures here at hospital. Daughter reports that pt had a recent change in appetite and wt in the past 3 months. Pt typically eats 2 meals with snacks, UBW 180#, then diet decreased to 1 meal a day and pt lose 12-13#. Current Diet Order/ Nutrition Support Mechanical soft ground Patient / S.O Can Pertinent Medications Novolog, Levaquin, Zofran, NaCl 0.9%, NaCl tab Pertinent Labs Reviewed Nutritional Hx/Data Height 1.68 m Height (Calculated Centimeters) 167.6 Current Weight (lbs) 76.657 kg Weight (Calculated Kilograms) 76.7 Weight (Calculated Grams) 55254.1 Usual body Weight (lbs) 180 % Usual Body Weight 94 [place] Body Weight 142 % [place] Body Weight 119 Recent Weight Change Yes Weight Status Overweight GI Symptoms GI Symptoms Last BM Difficult in: Chewing Food Allergies No Cultural/Ethnic/B[employer]ism Belief No preferences. Usual diet at home Regular Skin Integrity/Comment: Steven 15. Skin intact. Current %PO Good (75-100%) Estimated Nutritional Goals BEE in Kcals: Using Current wt Calories/Kcals/Kg Based on CBW 76.8 kg, wt loss Kcals Calculated 1724-3128 ml/day (30-35 Protein: Using Current wt Protein g/kg: Based on CBW 76.8 kg, maintenance Protein Calculated 77 gm/day (1 gm/kg) Fluid: ml 5580-3589 ml/day (30-35 ml/kg CBW) Nutritional Problem 1. Problem Problem Unintentional weight loss related to Etiology change in mentation and appetite as evidenced by Signs/Symptoms: daughter reports 12-13# wt loss in 3 months, 6.7% body wt . Malnutrition Alert Interpretation of weight loss Non-Severe up to 7.5% in 3 month (mod) Is there a minimum of two criteria No selected? Query Text:Check all the applicable criteria. A minimum of two criteria are recommended for diagnosis of either severe or non-severe malnutrition. Malnutrition Related to Morbid Obesity Malnutrition related to morbid obesity No Intervention/Recommendation Comments 1. Continue with current diet. 2. Recommend one Boost daily to help promote nutrient intake. 3. Consider swallow evaluation if pt cannot tolerate mechanical soft ground texture . Expected Outcomes/Goals Expected Outcomes/Goals Have pt meet at least 75% of estimated nutritional needs and stable wt. Physician Parameters for PEM Serum Albumin (g/dl) 3.1 - 3.4 (Mild) 04/14/16 18:36 Dietitian Notes by Anna Conde Nutrition Note Initial Nutrition Assessment completed by Anna Conde on 04/14/16. Please refer to nutrition assessment under Patient Care tab of EMR. Nutrition Recommendations: 1. Continue with current diet. 2. Recommend one Boost daily to help promote nutrient intake. 3. Consider swallow evaluation if pt cannot tolerate mechanical soft ground texture. F/U in 3-5 days as Moderate risk, 04/17-04/19. Initialized on 04/14/16 18:36 - END OF NOTE
[2016-04-16] MEDS: Aspirin 81mg Chewable Tab PO SCH (09:40)
--- NOTE | 2016-04-16 09:57 | General Progress Note ---
Subjective - Review of Systems Service Date: 04/16/16 Events since last encounter: discussed with daughter. transfer to SNF while awaiting 4 weeks prior to surgery should be on ASA and Plavix possibility of stroke while waiting and during surgery as well Subjective: has bilateral strokes and severe carotid stenosis smokes 1 pack per day, and drinks too discussed with Dr. Hahn, texted Dr. Bullock suggest wait of 4 to 6 weeks before revascularization discussed with daughter pathology and treatment Objective - Results Result Diagrams: 04/15/16 11:05 04/15/16 11:05 Recent Labs: Laboratory Last Values WBC 5.6 Th/cmm (4.8-10.8) 04/15/16 11:05 RBC 4.87 Mil/cmm (3.80-5.80) 04/15/16 11:05 Hgb 14.6 gm/dL (12.6-17.4) 04/15/16 11:05 Hct 43.5 % (39.0-49.0) 04/15/16 11:05 MCV 89.4 fl (80-99) 04/15/16 11:05 MCH 29.9 pg (27.0-31.0) 04/15/16 11:05 MCHC Differential 33.5 pg (28.0-36.0) 04/15/16 11:05 RDW 12.2 % (11.5-20.0) 04/15/16 11:05 Plt Count 189 Th/cmm (150-400) 04/15/16 11:05 MPV 8.0 fl 04/15/16 11:05 Neutrophils % 49.1 % (40.0-80.0) 04/15/16 11:05 Band Neutrophils % 2 % (0-10) 04/14/16 05:10 Lymphocytes % 35.7 % (20.0-50.0) 04/15/16 11:05 Monocytes % 8.4 % (2.0-10.0) 04/15/16 11:05 Eosinophils % 6.1 % (0.0-5.0) H 04/15/16 11:05 Basophils % 0.7 % (0.0-2.0) 04/15/16 11:05 Neutrophils (Manual) 54 % (40-80) 04/14/16 05:10 Lymphocytes 34 % (20-50) 04/14/16 05:10 Monocytes 8 % (2-10) 04/14/16 05:10 Eosinophils 1 % (0-5) 04/14/16 05:10 Atypical Lymphocytes 1 % 04/14/16 05:10 Platelet Estimate ADEQUATE (NORMAL) 04/14/16 05:10 Platelet Morphology NORMAL (NORMAL) 04/14/16 05:10 RBC Morph Micro Appear NORMAL (NORMAL) 04/14/16 05:10 Sodium 141 mEq/L (136-145) 04/15/16 11:05 Potassium 3.6 mEq/L (3.5-5.1) 04/15/16 11:05 Chloride 106 mEq/L (98-107) 04/15/16 11:05 Carbon Dioxide 28.0 mEq/L (21.0-31.0) 04/15/16 11:05 Anion Gap 10.6 (7.0-16.0) 04/15/16 11:05 BUN 7 mg/dL (7-25) 04/15/16 11:05 Creatinine 0.7 mg/dL (0.7-1.3) 04/15/16 11:05 Est GFR ( Amer) TNP 04/15/16 11:05 Est GFR (Non-Af Amer) TNP 04/15/16 11:05 BUN/Creatinine Ratio 10.0 04/15/16 11:05 Glucose 119 mg/dL (70-105) H 04/15/16 11:05 POC Glucose 88 MG/DL (70 - 105) 04/16/16 06:13 Plasma/Ser Osmolality 287 mOsmol/kg (280-301) 04/13/16 06:26 Calcium 9.1 mg/dL (8.6-10.3) 04/15/16 11:05 Total Bilirubin 0.4 mg/dL (0.3-1.0) 04/15/16 11:05 AST 23 U/L (13-39) 04/15/16 11:05 ALT 23 U/L (7-52) 04/15/16 11:05 Alkaline Phosphatase 58 U/L (34-104) 04/15/16 11:05 Total Protein 6.4 gm/dL (6.0-8.3) 04/15/16 11:05 Albumin 3.3 gm/dL (4.2-5.5) L 04/15/16 11:05 Globulin 3.1 gm/dL 04/15/16 11:05 Albumin/Globulin Ratio 1.1 (1.0-1.8) 04/15/16 11:05 Triglycerides 111 mg/dL (<150) 04/11/16 05:18 Cholesterol 146 mg/dL (<200) 04/11/16 05:18 LDL Cholesterol Direct 93 mg/dL (75-193) 04/11/16 05:18 HDL Cholesterol 36 mg/dL (23-92) 04/11/16 05:18 TSH 5.54 uIU/ml (0.34-5.60) 04/13/16 05:26 Total Cortisol 9.1 04/12/16 05:08 Urine Source [place] 04/11/16 06:05 Urine Color [place] 04/11/16 06:05 Urine Clarity CLEAR (CLEAR) 04/11/16 06:05 Urine pH 7.0 04/11/16 06:05 Ur Specific [place] 1.015 (1.005-1.030) 04/11/16 06:05 Urine Protein NEGATIVE mg/dL (NEGATIVE) 04/11/16 06:05 Urine Glucose (UA) NEGATIVE mg/dL (NEGATIVE) 04/11/16 06:05 Urine Ketones NEGATIVE mg/dL (NEGATIVE) 04/11/16 06:05 Urine Blood MODERATE (NEGATIVE) H 04/11/16 06:05 Urine Nitrate NEGATIVE (NEGATIVE) 04/11/16 06:05 Urine Bilirubin NEGATIVE (NEGATIVE) 04/11/16 06:05 Urine Urobilinogen 0.2 E.U./dL (0.2 - 1.0) 04/11/16 06:05 Ur Leukocyte Esterase NEGATIVE (NEGATIVE) 04/11/16 06:05 Urine RBC 50-100 /hpf (0-5) H 04/11/16 06:05 Urine WBC 0-2 /hpf (0-5) 04/11/16 06:05 Ur Epithelial Cells OCCASIONAL /lpf (FEW) 04/11/16 06:05 Urine Bacteria OCCASIONAL /hpf (NONE SEEN) 04/11/16 06:05 Urine Osmolality 197 mOsmol/kg 04/13/16 10:00 Ur Random Sodium 89 mmol/L 04/12/16 15:30 - Physical Exam Vitals and I&O: Vital Signs Temp 98.6 F 04/16/16 04:00 Pulse 78 04/16/16 04:00 Resp 18 04/16/16 04:00 BP 95/65 04/16/16 04:00 Pulse Ox 99 04/16/16 04:00 Intake & Output 04/15/16 04/16/16 04/16/16 18:59 06:59 18:59 Intake Total 1700 100 Output Total 1800 Balance -100 100 Intake: Intake, IV Amount 1000 100 Levofloxacin 500mg/100mL 100 500 mg In 100 ml @ 100 mls/hr IV Q24HR [facility] Rx#: [id number] Sodium Chloride 0.9% 1, 1000 000 ml @ 125 mls/hr IV . Q8H [facility] Rx#:[id number] Oral 700 Output: Urine 1800 Other: # Bowel Movements 1 Active Medications: Current Medications Acetaminophen (Tylenol) 650 mg PO Q6H PRN PRN Reason: Pain or Fever >101 Stop: 06/09/16 01:29 Last Admin: 04/13/16 23:12 Dose: 650 mg Alprazolam (Xanax) 0.5 mg PO Q12HR PRN; Protocol PRN Reason: Agitation Stop: 06/09/16 08:59 Last Admin: 04/15/16 03:49 Dose: 0.5 mg Aspirin (Aspirin Chewable) 81 mg PO DAILY [facility] Stop: 06/09/16 21:59 Last Admin: 04/15/16 09:15 Dose: 81 mg Clopidogrel Bisulfate (Plavix) 75 mg PO DAILY [facility] Stop: 06/15/16 08:59 Heparin Sodium (Porcine) (Heparin) 5,000 units SUBQ Q12HR [facility] Stop: 06/09/16 20:59 Last Admin: 04/15/16 20:55 Dose: 5,000 units Levofloxacin (Levaquin Pb) 500 mg in 100 mls @ 100 mls/hr IV Q24HR [facility] Stop: 06/11/16 00:00 Last Infusion: 04/16/16 01:47 Dose: Infused Sodium Chloride (Nacl 0.9%) 1,000 mls @ 125 mls/hr IV .Q8H [facility] Stop: 06/09/16 01:59 Last Admin: 04/15/16 09:15 Dose: 125 mls/hr Insulin Aspart (Novolog Insulin Sliding Scale) 0 units SUBQ Q6HR [facility] PRN Reason: Protocol Stop: 06/09/16 05:59 Last Admin: 04/16/16 06:00 Dose: Not Given Midodrine (Proamatine) 5 mg PO TID [facility] Stop: 06/12/16 20:59 Last Admin: 04/15/16 20:55 Dose: 5 mg Miscellaneous (Vte Chemical Prophylaxis Screen/ Admission) 1 ea [facility] PRN PRN PRN Reason: PROTOCOL Stop: 06/09/16 11:29 Ondansetron HCl (Zofran) 4 mg IVP Q6H PRN PRN Reason: Nausea / Vomiting Stop: 06/09/16 01:32 Sodium Chloride (Nacl Tab) 1 gm PO BID [facility] Stop: 06/12/16 16:59 Last Admin: 04/15/16 17:10 Dose: 1 gm Nutritional Asmnt/Malnutr-PDOC - Dietary Evaluation Malnutrition Findings (Please click <Entered> for more info): Nutritional Asmnt/Malnutrition Start: 04/14/16 18: 25 Text: Status: Complete Freq: Document 04/14/16 18:25 [facility] (Rec: 04/14/16 18:36 [facility] [id number]) Nutritional Asmnt/Malnutrition Patient General Information Nutritional Screening Moderate Risk Screening Pertinent Medical Hx/Surgical Hx None Subjective Information Pt is a 70-year-old male admitted with chief complaint of confusion and weakness to his right side. Pt was awake during time of visit. Pt speaks Slov[place] only. Daughter was at bedside and able to provide pt's nutritional hx. Pt appears well nourished with no signs of muscle or fat depletion. Daughter reports that pt is tolerating mechanical soft ground texture , but he cannot tolerate chopped. Pt does not have his dentures here at hospital. Daughter reports that pt had a recent change in appetite and wt in the past 3 months. Pt typically eats 2 meals with snacks, UBW 180#, then diet decreased to 1 meal a day and pt lose 12-13#. Current Diet Order/ Nutrition Support Mechanical soft ground Patient / S.O Can Pertinent Medications Novolog, Levaquin, Zofran, NaCl 0.9%, NaCl tab Pertinent Labs Reviewed Nutritional Hx/Data Height 1.68 m Height (Calculated Centimeters) 167.6 Current Weight (lbs) 76.657 kg Weight (Calculated Kilograms) 76.7 Weight (Calculated Grams) 42450.1 Usual body Weight (lbs) 180 % Usual Body Weight 94 [place] Body Weight 142 % [place] Body Weight 119 Recent Weight Change Yes Weight Status Overweight GI Symptoms GI Symptoms Last BM Difficult in: Chewing Food Allergies No Cultural/Ethnic/Ep[employer] Belief No preferences. Usual diet at home Regular Skin Integrity/Comment: Steven 15. Skin intact. Current %PO Good (75-100%) Estimated Nutritional Goals BEE in Kcals: Using Current wt Calories/Kcals/Kg Based on CBW 76.8 kg, wt loss Kcals Calculated 3944-8072 ml/day (30-35 Protein: Using Current wt Protein g/kg: Based on CBW 76.8 kg, maintenance Protein Calculated 77 gm/day (1 gm/kg) Fluid: ml 1597-8580 ml/day (30-35 ml/kg CBW) Nutritional Problem 1. Problem Problem Unintentional weight loss related to Etiology change in mentation and appetite as evidenced by Signs/Symptoms: daughter reports 12-13# wt loss in 3 months, 6.7% body wt . Malnutrition Alert Interpretation of weight loss Non-Severe up to 7.5% in 3 month (mod) Is there a minimum of two criteria No selected? Query Text:Check all the applicable criteria. A minimum of two criteria are recommended for diagnosis of either severe or non-severe malnutrition. Malnutrition Related to Morbid Obesity Malnutrition related to morbid obesity No Intervention/Recommendation Comments 1. Continue with current diet. 2. Recommend one Boost daily to help promote nutrient intake. 3. Consider swallow evaluation if pt cannot tolerate mechanical soft ground texture . Expected Outcomes/Goals Expected Outcomes/Goals Have pt meet at least 75% of estimated nutritional needs and stable wt. Physician Parameters for PEM Serum Albumin (g/dl) 3.1 - 3.4 (Mild) 04/14/16 18:36 Dietitian Notes by Anna Conde Nutrition Note Initial Nutrition Assessment completed by Anna Conde on 04/14/16. Please refer to nutrition assessment under Patient Care tab of EMR. Nutrition Recommendations: 1. Continue with current diet. 2. Recommend one Boost daily to help promote nutrient intake. 3. Consider swallow evaluation if pt cannot tolerate mechanical soft ground texture. F/U in 3-5 days as Moderate risk, 04/17-04/19. Initialized on 04/14/16 18:36 - END OF NOTE
[2016-04-16] MEDS ORDERED: Sodium Chloride 0.9% 250 ML IV ONE (17:03)
[2016-04-17] MEDS: INSULIN ASPART SLIDING SCALE 100 UNITS/ML UNIT SUBQ SCH (00:15)
[2016-04-17] MEDS: Levofloxacin 500mg/100mL 500 MG/100 ML BAG IV SCH (00:16)
[2016-04-17 06:08] LABS: % BASOPHILS 0.7 % (0.0-2.0); % EOSINOPHILS 6.1 % (0.0-5.0); % LYMPHOCYTES 39.7 % (20.0-50.0); % MONOCYTES 6.7 % (2.0-10.0); % NEUTROPHILS 46.8 % (40.0-80.0); HEMATOCRIT 43.2 % (39.0-49.0); HEMOGLOBIN 14.8 gm/dL (12.6-17.4); MEAN CELL VOLUME 89.3 fl (80-99); MEAN CORPUSCULAR HEMOGLOBIN 30.5 pg (27.0-31.0); MEAN CORPUSCULAR HGB CONC 34.2 pg (28.0-36.0); MEAN PLATELET VOLUME 9.2 fl; PLATELET COUNT 202 Th/cmm (150-400); RED BLOOD COUNT 4.84 Mil/cmm (3.80-5.80); RED CELL DISTRIBUTION WIDTH 12.5 % (11.5-20.0); WHITE BLOOD COUNT 6.3 Th/cmm (4.8-10.8)
[2016-04-17 06:52] LABS: ALB/GLOB RATIO 1.1 (1.0-1.8); ALKALINE PHOSPHATASE 65 U/L (34-104); ANION GAP 11.1 (7.0-16.0); BILIRUBIN,TOTAL 0.5 mg/dL (0.3-1.0); BUN - UREA NITROGEN 8 mg/dL (7-25); BUN/CREATININE RATIO 11.4; CARBON DIOXIDE 26.5 mEq/L (21.0-31.0); CHLORIDE 106 mEq/L (98-107); CREATININE - SERUM 0.7 mg/dL (0.7-1.3); GLUCOSE 93 mg/dL (70-105); POTASSIUM SERUM 3.6 mEq/L (3.5-5.1); SGOT 22 U/L (13-39); SGPT/ALT 23 U/L (7-52); SODIUM SERUM 140 mEq/L (136-145)
[2016-04-17] MEDS ORDERED: Levothyroxine 0.025 Mg Tab PO SCH (07:30)
[2016-04-17] MEDS: Aspirin 81mg Chewable Tab PO SCH (08:43)
--- NOTE | 2016-04-17 09:09 | General Progress Note ---
Subjective - Review of Systems Service Date: 04/17/16 Subjective: Patient responding question, less confused. Objective - Results Result Diagrams: 04/17/16 05:20 04/17/16 05:20 Recent Labs: Laboratory Last Values WBC 6.3 Th/cmm (4.8-10.8) 04/17/16 05:20 RBC 4.84 Mil/cmm (3.80-5.80) 04/17/16 05:20 Hgb 14.8 gm/dL (12.6-17.4) 04/17/16 05:20 Hct 43.2 % (39.0-49.0) 04/17/16 05:20 MCV 89.3 fl (80-99) 04/17/16 05:20 MCH 30.5 pg (27.0-31.0) 04/17/16 05:20 MCHC Differential 34.2 pg (28.0-36.0) 04/17/16 05:20 RDW 12.5 % (11.5-20.0) 04/17/16 05:20 Plt Count 202 Th/cmm (150-400) 04/17/16 05:20 MPV 9.2 fl 04/17/16 05:20 Neutrophils % 46.8 % (40.0-80.0) 04/17/16 05:20 Band Neutrophils % 2 % (0-10) 04/14/16 05:10 Lymphocytes % 39.7 % (20.0-50.0) 04/17/16 05:20 Monocytes % 6.7 % (2.0-10.0) 04/17/16 05:20 Eosinophils % 6.1 % (0.0-5.0) H 04/17/16 05:20 Basophils % 0.7 % (0.0-2.0) 04/17/16 05:20 Neutrophils (Manual) 54 % (40-80) 04/14/16 05:10 Lymphocytes 34 % (20-50) 04/14/16 05:10 Monocytes 8 % (2-10) 04/14/16 05:10 Eosinophils 1 % (0-5) 04/14/16 05:10 Atypical Lymphocytes 1 % 04/14/16 05:10 Platelet Estimate ADEQUATE (NORMAL) 04/14/16 05:10 Platelet Morphology NORMAL (NORMAL) 04/14/16 05:10 RBC Morph Micro Appear NORMAL (NORMAL) 04/14/16 05:10 Sodium 140 mEq/L (136-145) 04/17/16 05:20 Potassium 3.6 mEq/L (3.5-5.1) 04/17/16 05:20 Chloride 106 mEq/L (98-107) 04/17/16 05:20 Carbon Dioxide 26.5 mEq/L (21.0-31.0) 04/17/16 05:20 Anion Gap 11.1 (7.0-16.0) 04/17/16 05:20 BUN 8 mg/dL (7-25) 04/17/16 05:20 Creatinine 0.7 mg/dL (0.7-1.3) 04/17/16 05:20 Est GFR ( Amer) TNP 04/17/16 05:20 Est GFR (Non-Af Amer) TNP 04/17/16 05:20 BUN/Creatinine Ratio 11.4 04/17/16 05:20 Glucose 93 mg/dL (70-105) 04/17/16 05:20 POC Glucose 101 MG/DL (70 - 105) 04/17/16 06:16 Plasma/Ser Osmolality 287 mOsmol/kg (280-301) 04/13/16 06:26 Calcium 9.0 mg/dL (8.6-10.3) 04/17/16 05:20 Total Bilirubin 0.5 mg/dL (0.3-1.0) 04/17/16 05:20 AST 22 U/L (13-39) 04/17/16 05:20 ALT 23 U/L (7-52) 04/17/16 05:20 Alkaline Phosphatase 65 U/L (34-104) 04/17/16 05:20 Total Protein 6.3 gm/dL (6.0-8.3) 04/17/16 05:20 Albumin 3.3 gm/dL (4.2-5.5) L 04/17/16 05:20 Globulin 3.0 gm/dL 04/17/16 05:20 Albumin/Globulin Ratio 1.1 (1.0-1.8) 04/17/16 05:20 Triglycerides 111 mg/dL (<150) 04/11/16 05:18 Cholesterol 146 mg/dL (<200) 04/11/16 05:18 LDL Cholesterol Direct 93 mg/dL (75-193) 04/11/16 05:18 HDL Cholesterol 36 mg/dL (23-92) 04/11/16 05:18 TSH 9.88 uIU/ml (0.34-5.60) H 04/17/16 05:20 Total Cortisol 9.1 04/12/16 05:08 Urine Source [place] 04/11/16 06:05 Urine Color [place] 04/11/16 06:05 Urine Clarity CLEAR (CLEAR) 04/11/16 06:05 Urine pH 7.0 04/11/16 06:05 Ur Specific [place] 1.015 (1.005-1.030) 04/11/16 06:05 Urine Protein NEGATIVE mg/dL (NEGATIVE) 04/11/16 06:05 Urine Glucose (UA) NEGATIVE mg/dL (NEGATIVE) 04/11/16 06:05 Urine Ketones NEGATIVE mg/dL (NEGATIVE) 04/11/16 06:05 Urine Blood MODERATE (NEGATIVE) H 04/11/16 06:05 Urine Nitrate NEGATIVE (NEGATIVE) 04/11/16 06:05 Urine Bilirubin NEGATIVE (NEGATIVE) 04/11/16 06:05 Urine Urobilinogen 0.2 E.U./dL (0.2 - 1.0) 04/11/16 06:05 Ur Leukocyte Esterase NEGATIVE (NEGATIVE) 04/11/16 06:05 Urine RBC 50-100 /hpf (0-5) H 04/11/16 06:05 Urine WBC 0-2 /hpf (0-5) 04/11/16 06:05 Ur Epithelial Cells OCCASIONAL /lpf (FEW) 04/11/16 06:05 Urine Bacteria OCCASIONAL /hpf (NONE SEEN) 04/11/16 06:05 Urine Osmolality 197 mOsmol/kg 04/13/16 10:00 Ur Random Sodium 89 mmol/L 04/12/16 15:30 - Physical Exam Vitals and I&O: Vital Signs Temp 98 F 04/17/16 04:00 Pulse 65 04/17/16 04:00 Resp 18 04/17/16 04:00 BP 90/62 04/17/16 04:00 Pulse Ox 97 04/17/16 04:00 Intake & Output 04/16/16 04/17/16 04/17/16 18:59 06:59 18:59 Intake Total 550 400 Output Total 660 3000 Balance -110 -2600 Intake: Intake, IV Amount 100 Levofloxacin 500mg/100mL 100 500 mg In 100 ml @ 100 mls/hr IV Q24HR [facility] Rx#: [id number] Oral 550 300 Output: Urine 660 3000 Other: # Voids 1,100 Active Medications: Current Medications Acetaminophen (Tylenol) 650 mg PO Q6H PRN PRN Reason: Pain or Fever >101 Stop: 06/09/16 01:29 Last Admin: 04/13/16 23:12 Dose: 650 mg Alprazolam (Xanax) 0.5 mg PO Q12HR PRN; Protocol PRN Reason: Agitation Stop: 06/09/16 08:59 Last Admin: 04/15/16 03:49 Dose: 0.5 mg Aspirin (Aspirin Chewable) 81 mg PO DAILY [facility] Stop: 06/09/16 21:59 Last Admin: 04/17/16 08:43 Dose: 81 mg Clopidogrel Bisulfate (Plavix) 75 mg PO DAILY [facility] Stop: 06/15/16 08:59 Last Admin: 04/17/16 08:42 Dose: 75 mg Heparin Sodium (Porcine) (Heparin) 5,000 units SUBQ Q12HR [facility] Stop: 06/09/16 20:59 Last Admin: 04/17/16 08:43 Dose: 5,000 units Levofloxacin (Levaquin Pb) 500 mg in 100 mls @ 100 mls/hr IV Q24HR [facility] Stop: 06/11/16 00:00 Last Infusion: 04/17/16 01:16 Dose: Infused Sodium Chloride (Nacl 0.9%) 1,000 mls @ 125 mls/hr IV .Q8H [facility] Stop: 06/09/16 01:59 Last Admin: 04/15/16 09:15 Dose: 125 mls/hr Insulin Aspart (Novolog Insulin Sliding Scale) 0 units SUBQ Q6HR [facility]ICK PRN Reason: Protocol Stop: 06/09/16 05:59 Last Admin: 04/17/16 00:15 Dose: Not Given Levothyroxine Sodium (Synthroid) 0.025 mg PO QDAC [facility] Stop: 06/16/16 07:29 Midodrine (Proamatine) 5 mg PO TID [facility] Stop: 06/12/16 20:59 Last Admin: 04/17/16 08:48 Dose: 5 mg Miscellaneous (Vte Chemical Prophylaxis Screen/ Admission) 1 ea [facility] PRN PRN PRN Reason: PROTOCOL Stop: 06/09/16 11:29 Ondansetron HCl (Zofran) 4 mg IVP Q6H PRN PRN Reason: Nausea / Vomiting Stop: 06/09/16 01:32 Sodium Chloride (Nacl Tab) 1 gm PO BID [facility]ICK Stop: 06/12/16 16:59 Last Admin: 04/17/16 08:42 Dose: 1 gm General: Alert, Cooperative, No acute distress HEENT: Atraumatic Neck: Supple Cardiovascular: Regular rate Lungs: Clear to auscultation Abdomen: Bowel sounds, Soft Extremities: Other (no edema) Neurological: Other (Non ambulatory) Skin: Other (Warm and dry) Psych/Mental Status: Other (Less confused) Assessment/Plan - Assessment Assessment: Patient is less confused, in no acute distress, responding question. Patient continue confused. Patient was not transported yesterday due to low BP, Will try today. 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 Family agree patient be transfer to an SNF and wait for surgery. Will continue to monitor Nutritional Asmnt/Malnutr-PDOC - Dietary Evaluation Malnutrition Findings (Please click <Entered> for more info): Nutritional Asmnt/Malnutrition Start: 04/14/16 18: 25 Text: Status: Complete Freq: Document 04/14/16 18:25 [facility] (Rec: 04/14/16 18:36 [facility] [id number]) Nutritional Asmnt/Malnutrition Patient General Information Nutritional Screening Moderate Risk Screening Pertinent Medical Hx/Surgical Hx None Subjective Information Pt is a 70-year-old male admitted with chief complaint of confusion and weakness to his right side. Pt was awake during time of visit. Pt speaks Indonesian only. Daughter was at bedside and able to provide pt's nutritional hx. Pt appears well nourished with no signs of muscle or fat depletion. Daughter reports that pt is tolerating mechanical soft ground texture , but he cannot tolerate chopped. Pt does not have his dentures here at hospital. Daughter reports that pt had a recent change in appetite and wt in the past 3 months. Pt typically eats 2 meals with snacks, UBW 180#, then diet decreased to 1 meal a day and pt lose 12-13#. Current Diet Order/ Nutrition Support Mechanical soft ground Patient / S.O Can Pertinent Medications Novolog, Levaquin, Zofran, NaCl 0.9%, NaCl tab Pertinent Labs Reviewed Nutritional Hx/Data Height 1.68 m Height (Calculated Centimeters) 167.6 Current Weight (lbs) 76.657 kg Weight (Calculated Kilograms) 76.7 Weight (Calculated Grams) 33184.1 Usual body Weight (lbs) 180 % Usual Body Weight 94 [place] Body Weight 142 % [place] Body Weight 119 Recent Weight Change Yes Weight Status Overweight GI Symptoms GI Symptoms Last BM Difficult in: Chewing Food Allergies No Cultural/Ethnic/Lutheran Belief No preferences. Usual diet at home Regular Skin Integrity/Comment: Steven 15. Skin intact. Current %PO Good (75-100%) Estimated Nutritional Goals BEE in Kcals: Using Current wt Calories/Kcals/Kg Based on CBW 76.8 kg, wt loss Kcals Calculated 6235-2092 ml/day (30-35 Protein: Using Current wt Protein g/kg: Based on CBW 76.8 kg, maintenance Protein Calculated 77 gm/day (1 gm/kg) Fluid: ml 4679-5955 ml/day (30-35 ml/kg CBW) Nutritional Problem 1. Problem Problem Unintentional weight loss related to Etiology change in mentation and appetite as evidenced by Signs/Symptoms: daughter reports 12-13# wt loss in 3 months, 6.7% body wt . Malnutrition Alert Interpretation of weight loss Non-Severe up to 7.5% in 3 month (mod) Is there a minimum of two criteria No selected? Query Text:Check all the applicable criteria. A minimum of two criteria are recommended for diagnosis of either severe or non-severe malnutrition. Malnutrition Related to Morbid Obesity Malnutrition related to morbid obesity No Intervention/Recommendation Comments 1. Continue with current diet. 2. Recommend one Boost daily to help promote nutrient intake. 3. Consider swallow evaluation if pt cannot tolerate mechanical soft ground texture . Expected Outcomes/Goals Expected Outcomes/Goals Have pt meet at least 75% of estimated nutritional needs and stable wt. Physician Parameters for PEM Serum Albumin (g/dl) 3.1 - 3.4 (Mild) 04/14/16 18:36 Dietitian Notes by Anna Conde Nutrition Note Initial Nutrition Assessment completed by Anna Conde on 04/14/16. Please refer to nutrition assessment under Patient Care tab of EMR. Nutrition Recommendations: 1. Continue with current diet. 2. Recommend one Boost daily to help promote nutrient intake. 3. Consider swallow evaluation if pt cannot tolerate mechanical soft ground texture. F/U in 3-5 days as Moderate risk, 04/17-04/19. Initialized on 04/14/16 18:36 - END OF NOTE
--- NOTE | 2016-04-18 15:40 | Diagnostic Imaging Report ---
CT angiogram of the brain with intravenous contrast (CTA) HISTORY: Stroke, CVA Total DLP equals 365 CTDI equals 23.0 Axial sections were obtained from the base of the skull to the vertex following administration of intravenous contrast. The exam demonstrates normal opacification of the distal vertebral and basilar arteries at the base of the skull. Mild atherosclerotic calcification is noted along the intracavernous portions of the internal carotid arteries bilaterally. The posterior communicating arteries are not clearly visualized. No vascular malformations noted about the [place]. No aneurysms are seen. No other definite focal abnormalities identified within the intracerebral circulation. IMPRESSION: 1. Evidence of mild atherosclerotic calcification along the intracavernous portions of the internal carotid arteries. 2. Incomplete visualization of the [place] 3. No other focal abnormalities or vascular malformations identified.
--- NOTE | 2016-05-06 00:59 | Discharge Summary ---
CHIEF COMPLAINT: Confusion and motor weakness. HISTORY OF PRESENT ILLNESS: This is the case of a 70-year-old male, who was transferred from [facility] secondary to confusion and weakness. Family members reported the patient stayed alone for 10 mins and when they came back, the patient was confused and weakness in the right arm and right leg. The patient was transported to ER and according to the CT scan that was done in [facility] shows abnormal right frontal, occipital and possible right temporal lobe infarctions, reason why the patient was treated on a non-tPA protocol and he was transferred to [facility] to continue care. HOSPITAL COURSE AND TREATMENT: Then, this patient was admitted in the medical-surgical floor. He was started on IV normal saline. Consult with Neurology was done and recommendations were followed. He was in neurological check q. [address] was done and shows atherosclerotic plaque in the distal right carotid bulb, and to a greater degree in the proximal most portion of the right internal carotid artery resulting in a greater than 90% narrowing. Severe narrowing noted in the region of the right external carotid artery. 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 Due to these, consult with vascular surgeon was done and recommendations were followed. The patient was started on warfarin and the case was discussed with family members. Family members decided to take the patient to a correction facility to continue treatment with warfarin and in the future do surgery. In the moment of the discharge, the patient was awake, alert, confused, in no acute distress. CREDIT CONTROL MANAGER IN THIS CASE: Neurology and vascular surgeon. DISPOSITION: Per family request, the patient is sent to a longterm to continue treatment with PCP and consultation with vascular surgeon before possible carotid endarterectomy. The patient was discharged with warfarin. IMPRESSION: 1. Stroke. 2. Carotid narrowing to 90%. [facility]# [id number]
== END 2016-04-17 11:25 | DRG 65 ==
LOC: TELE 23:57
PROVIDERS: ADMIT General Practice; ATTEND General Practice
DX: I63.9 Cerebral infarction, unspecified (principal); E44.1 Mild protein-calorie malnutrition; N39.0 Urinary tract infection, site not specified; I65.23 Occlusion and stenosis of bilateral carotid arteries; R27.0 Ataxia, unspecified; F17.210 Nicotine dependence, cigarettes, uncomplicated
CPT/HCPCS: 36415-UA; 70450-TC; 70498-TC; 71010-TC; 80053-TC; 80061-TC; 81001-TC; 82533-90; 82948-90; 83930-90; 83935-90; 84300-TC; 84443-TC; 85007-TC; 85025-TC; 85027-TC; 93971-TC-LT; 97530; J1644; J1815; J1956; J2060; J3480; J7030; Q9967; X3904; Z7610